=== PATIENT | male | born 1990 | race Caucasian/White ===

== ENCOUNTER 2016-10-01 11:20 | Emergency (ER) | payer OTHER, SELFPAY ==
[2016-10-01] MEDS ORDERED: GASTROGRAFIN SOLUTION 30ML (Q9963) As Ordered ONE (13:02)
[2016-10-01] MEDS ORDERED: ONDANSETRON 4MG/2ML VIAL (J2405) As Ordered ONE (13:02)
[2016-10-01 13:10] LABS: BASO # 0.1 K/mm3 (0.0-0.2); BASO % 0.7 % (0.0-1.0); EOS # 0.2 K/mm3 (0.0-0.50); EOS % 1.8 % (0.0-3.0); LARGE UNSTAINED CELL # 0.1 K/mm3 (0.0-0.4); LYMPH # 2.2 K/mm3 (1.5-6.5); LYMPH % 23.3 % (24.0-44.0); MEAN CORPUSCULAR HEMOGLOBIN 29.8 pg (27.0-33.0); MEAN CORPUSCULAR HGB CONC 32.8 g/dl (32.0-36.5); MONO # 0.7 K/mm3 (0.0-0.8); MONO % 7.5 % (0.0-5.0); NEUTROPHILS # 5.8 K/mm3 (1.8-7.7); NEUTROPHILS % 65.7 % (36.0-66.0); PLATELET COUNT, AUTOMATED 205 k/mm3 (150-450); RED CELL DISTRIBUTION WIDTH 12.4 % (11.5-14.5); WHITE BLOOD COUNT 8.8 K/mm3 (4.0-10.0)
[2016-10-01 13:30] LABS: ALBUMIN/GLOBULIN RATIO 1.08 (1.00-1.93); ALKALINE PHOSPHATASE 82 U/L (45-117); ALT/SGPT 21 U/L (12-78); ANION GAP 7 MEQ/L (8-16); AST/SGOT 12 U/L (15-37); BILIRUBIN,DIRECT < 0.1 MG/DL (0.0-0.2); BILIRUBIN,TOTAL 0.4 MG/DL (0.2-1.0); BLOOD UREA NITROGEN 13 MG/DL (7-18); CALCIUM LEVEL 9.3 MG/DL (8.5-10.1); CARBON DIOXIDE LEVEL 30 MEQ/L (21-32); CHLORIDE LEVEL 107 MEQ/L (98-107); CREATININE FOR GFR 0.81 MG/DL (0.70-1.30); GLOMERULAR FILTRATION RATE > 60.0 (>60); GLUCOSE, FASTING 91 MG/DL (70-105); POTASSIUM SERUM 4.2 MEQ/L (3.5-5.1); SODIUM LEVEL 144 MEQ/L (136-145); TOTAL PROTEIN 7.7 GM/DL (6.4-8.2)
[2016-10-01] MEDS ORDERED: ISOVUE-370 76% 100ML VIAL (Q9967) As Ordered ONE (14:32)
--- NOTE | 2016-10-01 15:27 | REP ---
CT study of the abdomen and pelvis with IV and oral contrast: History: Abdominal pain. Comparison study January 28, 2016. CT contrast dose: 100 ml of Isovue [address] findings: Preliminary digital leather cleaner radiograph demonstrates an unremarkable bowel gas pattern. The lung bases are clear. The liver and the spleen are normal in size and homogeneous in texture. There are two peripheral 1 cm low density areas in the superior spleen, which are unchanged from the prior study of January 28, 2016. The gallbladder and pancreas are unremarkable. 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 The right renal vein and the inferior vena cava drain into some paralumbar and parathoracic collateral vessels, which appear to course into the azygos vein above the diaphragm. Left renal vein feeds into the intrahepatic segment of the IVC. This variant venous anatomy is unchanged. No retroperitoneal mass or adenopathy is seen. Kidneys enhance symmetrically and are morphologically intact. Small and large intestinal bowel loops are normal in the upper abdomen. Pelvic CT images demonstrate a normal appendix adjacent to the cecal tip. No small or large bowel dilation is seen. Urinary bladder, seminal vesicles and prostate are unremarkable. No bony destructive lesion is seen. No abdominal wall defect is seen. Impression: 1. No acute intra-abdominal abnormality. 2. 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 This is unchanged. Normal appendix is seen. No evidence of hydronephrosis or intrarenal calculus. Signed by Chuck Lyman MD 10/01/2016 04:50 P
--- NOTE | 2016-10-01 16:04 | EDDOCDS ---
Physician Documentation [facility] Name: Ariel Ruby Age: 26 yrs Sex: Male : 1990 Arrival Date: 10/01/2016 Time: 11:20 Bed I9 / 22 Private MD: NO PRIMARY PHYSICIAN, . Disposition: 10/01/16 15:45 Discharged to Home/Self Care. Impression: Nausea and vomiting. - Condition is Stable. - Discharge Instructions: Nausea and Vomiting. - Prescriptions for ZOFRAN ODT 4 mg - dissolve 1 tablet by ORAL route 4 times per day As needed do not chew, do not swallow whole; 10 tablet. - Medication Reconciliation, Local Pharmacy Hours, Work Release Form - 1 day form. - [facility] up: [facility]; When: 2 - 3 days; Reason: Recheck today's complaints. - Problem is new. - Symptoms have improved. - Notes: You were seen in the ED for nausea and vomiting. Bloodwork along with CT scan of the abdomen and pelvis showed no acute findings. 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 You may take Zofran as needed for nausea. Encourage clear liquids, then advance your diet as tolerated. Call your doctor to arrange to be seen for follow-up. If you have no doctor please call the [facility] to arrange to be seen. Return to the ED for any worsening abdominal pain, fever, inability to tolerate oral foods or liquids or any other concerns. Historical: - Allergies: Codeine Sulfate (Rash); - Home Meds: 1. clindamycin HCl 300 mg Oral cap 1 cap every 6 hours (Last dose: 10/01/2016 07:00) 2. Motrin 800 mg Oral tab 1 tab 3 times per day (Last dose: 10/01/2016 07:00) 3. prednisone 10 mg Oral tab once daily (Last dose: 10/01/2016 07:00) - PMHx: Colitis; Kidney stones; Pneumothorax, Spontaneous; - PSHx: Tonsillectomy; - Social history: Smoking status: Patient uses tobacco products, heavy tobacco smoker. No barriers to communication noted, Speaks appropriately for age. - Family history: Not pertinent. - : The pt / caregiver states he / she is not on anticoagulants. Home medication list is obtained from the patient. - Exposure Risk Screening:: None identified. Vital Signs: 10/01 11:22 BP 132 / 88; Pulse 98; Resp 18; Temp 98.5(O); Pulse Ox 100% on R/A; Weight 56.7 kg / dem1 125 lbs; Height 5 ft. 10 in. (177.80 cm); Pain 6/10; 16:02 BP 120 / 78; Pulse 82; Resp 18; Temp 96.4(O); Pulse Ox 100% on R/A; Pain 2/10; jjr 11:22 Body Mass Index 17.94 (56.70 kg, 177.80 cm) dem1 MDM: 12:36 IV Saline Lock ordered. br1 12:36 NS 0.9% 1000 ml IV at 150 mL/hr continuous ordered. br1 12:37 Ondansetron 4 mg IVP once ordered. br1 12:37 CBC with Diff Ordered. EDMS 12:37 BMP Ordered. EDMS 12:37 Liver Profile Ordered. EDMS 12:37 Lipase Ordered. EDMS 12:38 CT ABD & PELVIS: IV and Oral Contrast Ordered. EDMS 12:57 Diatrizoate Meglumine & Sodium Liquid 10 ml PO once; mix in 290cc of water,administer jjr at 1300 ordered. 12:57 Diatrizoate Meglumine & Sodium Liquid 10 ml PO once; mix in 290cc of water, administer jjr at 1330 ordered. 13:02 Financial registration complete. az 13:08 GASTROINTESTINAL (GI) PANEL Ordered. EDMS 13:26 [facility] Payment Agreement was scanned into [employer] and attached to record. az 14:12 CBC with Diff Reviewed. br1 14:12 BMP Reviewed. br1 14:12 Liver Profile Reviewed. br1 14:12 Lipase Reviewed. br1 15:10 Fluid Challenge ordered. br1 Administered Medications: 13:10 Drug: Diatrizoate Meglumine & Sodium 10 ml [diatrizoate meglumine and diat.sodium 66 jjr %-10 % oral solution (10 mL)] Route: PO; 13:15 Drug: NS 0.9% 1000 ml [sodium chloride 0.9 % intravenous solution] Route: IV; Rate: 150 jjr mL/hr; Site: left antecubital; 16:02 Follow up: IV Status: Infusion discontinued; IV Intake: 300ml jjr 13:16 Drug: Ondansetron 4 mg [ondansetron HCl 2 mg/mL intravenous solution (2 mL)] Route: jjr IVP; Site: left antecubital; 13:38 Drug: Diatrizoate Meglumine & Sodium 10 ml [diatrizoate meglumine and diat.sodium 66 jjr %-10 % oral solution (10 mL)] Route: PO; Signatures: Dispatcher [employer] EDMS Wilner Abernathy,RN RN Sal Melendez MD MD br1 Griselda Dominguez RN RN Mike Vila RN RN ml6 Marti Tracey The chart was reviewed and I authenticate all verbal orders and agree with the evaluation and treatment provided.Corrections: (The following items were deleted from the chart) 13:08 13:06 GASTROINTESTINAL (GI) PANEL+HEAVENLY ordered. EDMS EDMS Attachments: 13:26 [facility] Payment Agreement az MTDD
--- NOTE | 2016-10-01 16:04 | EDDOCDS ---
Nurse's Notes [facility] Name: Ariel Ruby Age: 26 yrs Sex: Male : 1990 Arrival Date: 10/01/2016 Time: 11:20 Bed I9 / Private MD: NO PRIMARY PHYSICIAN, . Diagnosis: Nausea and vomiting Presentation: 10/01 11:27 Presenting complaint: Patient states: states he has been having Heartburn every night ml6 when he lays down to sleep x 1 week. Adult Sepsis Screening: The patient does not have new or worsening altered mentation. Patient's respiratory rate is less than 22. Systolic blood pressure is greater than 100. Patient has a qSOFA score of 0- Negative Sepsis Screen. Suicide/Homicide risk assessment- the patient denies having any suicidal and/or homicidal ideations and does not present with any other emotional, behavioral or mental health complaints. Status: Patient is not a financial services consultant or dependent. Transition of care: patient was not received from another setting of care. 11:27 Acuity: COLT Level 4 ml6 11:27 Method Of Arrival: Walkin/Carried/Asstd ml6 Triage Assessment: 11:30 General: Appears in no apparent distress, Behavior is appropriate for age, cooperative. ml6 Pain: Denies pain. HIV screening NA for this visit Offered previously. GI: Abdomen is flat, non- distended Bowel sounds present X 4 quads. Abd is soft and non tender X 4 quads. Reports epigastric pain, indigestion. Historical: - Allergies: Codeine Sulfate (Rash); - Home Meds: 1. clindamycin HCl 300 mg Oral cap 1 cap every 6 hours (Last dose: 10/01/2016 07:00) 2. Motrin 800 mg Oral tab 1 tab 3 times per day (Last dose: 10/01/2016 07:00) 3. prednisone 10 mg Oral tab once daily (Last dose: 10/01/2016 07:00) - PMHx: Colitis; Kidney stones; Pneumothorax, Spontaneous; - PSHx: Tonsillectomy; - Social history: Smoking status: Patient uses tobacco products, heavy tobacco smoker. No barriers to communication noted, Speaks appropriately for age. - Family history: Not pertinent. - : The pt / caregiver states he / she is not on anticoagulants. Home medication list is obtained from the patient. - Exposure Risk Screening:: None identified. Screenin:16 Screening information is obtained from the patient. Fall risk: No risks identified. jmk Assistance ADL's: requires no assistance with activities of daily living. Abuse/DV Screen: The patient / caregiver reports he/she is: not in a situation that causes fear, pain or injury. Nutritional screening: No deficits noted. Advance Directives: Currently, there is no health care proxy. There is no active DNR order. There is no living will. There is no Power of Biazzi Nitrator Operator. Advance directive information has not previously been placed in an [facility] medical record. 16:03 home support is adequate. jjr Assessment: 12:16 General: Appears in no apparent distress, very tolerant of physical activity . jmk ambulates with brisk gait.. indicates abd pain x week since starting antibiotic and steroids. .Moist pink oral mucosa. Abd soft and non distended with bowel sounds present x 4. GI: Abdomen is flat, non- distended Bowel sounds present X 4 quads. Abd is soft X 4 quads Abd is tender to palpation diffusely tender. 13:16 General: Appears in no apparent distress, slender, denies nausea at this time, jjr instructions for oral contrast pt verbalizes understanding. Pain: Aggravated by eating. 14:31 General: Appears resting with eyes closed resp easy and regular. rouses to verbal jmk stimuli. reports little change to pain level " maybe a little less". oral contrast taken and retained, awaiting ct avail. 15:14 General: Appears in no apparent distress, sipping on gingerale, tolerating without jjr difficulty at this time, pt denies needs at this time. Vital Signs: 11:22 BP 132 / 88; Pulse 98; Resp 18; Temp 98.5(O); Pulse Ox 100% on R/A; Weight 56.7 kg; dem1 Height 5 ft. 10 in. (177.80 cm); Pain 6/10; 16:02 BP 120 / 78; Pulse 82; Resp 18; Temp 96.4(O); Pulse Ox 100% on R/A; Pain 2/10; jjr 11:22 Body Mass Index 17.94 (56.70 kg, 177.80 cm) [facility] Vitals: 11:22 Log In Time: October 01, 2016 at 11:20. dem1 ED Course: 11:21 Patient visited by He Gastelum. dem1 11:21 NO PRIMARY PHYSICIAN, . is Private Physician. dem1 11:21 Patient moved to Waiting dem1 11:23 Patient moved to Pre RCE dem1 11:28 Triage Initiated ml6 12:10 Griselda Dominguez, RN is Primary Nurse. ml6 12:10 Patient moved to I8 / 16 ml6 12:16 Patient moved to I9 / 22 jmk 12:16 The patient / caregiver is instructed regarding the plan of care and ED course. jmk 12:21 Patient visited by Wilner Abernathy,LAURYN. jmk 12:22 Sal Ring MD is Attending Physician. br1 12:36 Patient visited by Sal Ring MD. br1 12:56 Lipase Sent. jjr 12:56 Liver Profile Sent. jjr 12:56 BMP Sent. jjr 12:56 CBC with Diff Sent. jjr 13:16 Inserted saline lock: 20 gauge in left antecubital area and blood collected. Labs jjr drawn. (by ED staff). Sent per order to lab. 13:17 Patient visited by Griselda Dominguez RN. jjr 13:26 [facility] [place] [place] Payment Agreement was scanned into [employer] and attached to record. az 14:15 Patient visited by Naya Hemphill PCA. jlf 14:32 Patient visited by Wilner Abernathy,LAURYN. jmk 15:10 Patient visited by Sal Ring MD. br1 15:15 Patient visited by Griselda Dominguez RN. jjr 15:43 Patient visited by Sal Ring MD. br1 15:45 [facility] is Referral Physician. br1 16:03 Discontinued lock intact, bleeding controlled, pressure dressing applied, No jjr redness/swelling at site. No procedures done that require assistance. Administered Medications: 13:10 Drug: Diatrizoate Meglumine & Sodium 10 ml [diatrizoate meglumine and diat.sodium 66 jjr %-10 % oral solution (10 mL)] Route: PO; 13:15 Drug: NS 0.9% 1000 ml [sodium chloride 0.9 % intravenous solution] Route: IV; Rate: 150 jjr mL/hr; Site: left antecubital; 16:02 Follow up: IV Status: Infusion discontinued; IV Intake: 300ml jjr 13:16 Drug: Ondansetron 4 mg [ondansetron HCl 2 mg/mL intravenous solution (2 mL)] Route: jjr IVP; Site: left antecubital; 13:38 Drug: Diatrizoate Meglumine & Sodium 10 ml [diatrizoate meglumine and diat.sodium 66 jjr %-10 % oral solution (10 mL)] Route: PO; Intake: 16:02 IV: 300.00ml; Total: 300.00ml. jjr Order Results: Lab Order: CBC with Diff; SPEC'M 10/01/16 12:53 Test: WHITE BLOOD COUNT; Value: 8.8; Range: 4.0-10.0; Units: K/mm3; Status: F Test: RED BLOOD COUNT; Value: 5.06; Range: 4.30-6.10; Units: M/mm3; Status: F Test: HEMOGLOBIN; Value: 15.1; Range: 14.0-18.0; Units: g/dl; Status: F Test: HEMATOCRIT; Value: 46.1; Range: 42.0-52.0; Units: %; Status: F Test: MEAN CORPUSCULAR VOLUME; Value: 91.0; Range: 80.0-96.0; Units: fl; Status: F Test: MEAN CORPUSCULAR HEMOGLOBIN; Value: 29.8; Range: 27.0-33.0; Units: pg; Status: F Test: MEAN CORPUSCULAR HGB CONC; Value: 32.8; Range: 32.0-36.5; Units: g/dl; Status: F Test: RED CELL DISTRIBUTION WIDTH; Value: 12.4; Range: 11.5-14.5; Units: %; Status: F Test: PLATELET COUNT, AUTOMATED; Value: 205; Range: 150-450; Units: k/mm3; Status: F Test: NEUTROPHILS %; Value: 65.7; Range: 36.0-66.0; Units: %; Status: F Test: LYMPH %; Value: 23.3; Range: 24.0-44.0; Abnormal: Below low normal; Units: %; Status: F Test: MONO %; Value: 7.5; Range: 0.0-5.0; Abnormal: Above high normal; Units: %; Status: F Test: EOS %; Value: 1.8; Range: 0.0-3.0; Units: %; Status: F Test: BASO %; Value: 0.7; Range: 0.0-1.0; Units: %; Status: F Test: LARGE UNSTAINED CELL %; Value: 1.0; Range: 0.0-4.0; Units: %; Status: F Test: NEUTROPHILS #; Value: 5.8; Range: 1.8-7.7; Units: K/mm3; Status: F Test: LYMPH #; Value: 2.2; Range: 1.5-6.5; Units: K/mm3; Status: F Test: MONO #; Value: 0.7; Range: 0.0-0.8; Units: K/mm3; Status: F Test: EOS #; Value: 0.2; Range: 0.0-0.50; Units: K/mm3; Status: F Test: BASO #; Value: 0.1; Range: 0.0-0.2; Units: K/mm3; Status: F Test: LARGE UNSTAINED CELL #; Value: 0.1; Range: 0.0-0.4; Units: K/mm3; Status: F Lab Order: [facility]; SPEC'M 10/01/16 12:53 Test: GLUCOSE, FASTING; Value: 91; Range: 70-105; Units: MG/DL; Status: F Test: BLOOD UREA NITROGEN; Value: 13; Range: 7-18; Units: MG/DL; Status: F Test: CREATININE FOR GFR; Value: 0.81; Range: 0.70-1.30; Units: MG/DL; Status: F Test: GLOMERULAR FILTRATION RATE; Value: > 60.0; Range: >60; Status: F Test: SODIUM LEVEL; Value: 144; Range: 136-145; Units: MEQ/L; Status: F Test: POTASSIUM SERUM; Value: 4.2; Range: 3.5-5.1; Units: MEQ/L; Status: F Test: CHLORIDE LEVEL; Value: 107; Range: 98-107; Units: MEQ/L; Status: F Test: CARBON DIOXIDE LEVEL; Value: 30; Range: 21-32; Units: MEQ/L; Status: F Test: ANION GAP; Value: 7; Range: 8-16; Abnormal: Below low normal; Units: MEQ/L; Status: F Test: CALCIUM LEVEL; Value: 9.3; Range: 8.5-10.1; Units: MG/DL; Status: F Test Note: ; Units are mL/min/1.73 m2 Chronic Kidney Disease Staging per NKF: Stage I & II GFR >=60 Normal to Mildly Decreased Stage III GFR 30-59 Moderately Decreased Stage IV GFR 15-29 Severely Decreased Stage V GFR <15 Very Little GFR Left ESRD GFR <15 on GROMMET WORKER Lab Order: Liver Profile; SPEC'10/01/16 12:53 Test: AST/SGOT; Value: 12; Range: 15-37; Abnormal: Below low normal; Units: U/L; Status: F Test: ALT/SGPT; Value: 21; Range: 12-78; Units: U/L; Status: F Test: ALKALINE PHOSPHATASE; Value: 82; Range: 45-117; Units: U/L; Status: F Test: BILIRUBIN,TOTAL; Value: 0.4; Range: 0.2-1.0; Units: MG/DL; Status: F Test: BILIRUBIN,DIRECT; Value: < 0.1; Range: 0.0-0.2; Units: MG/DL; Status: F Test: TOTAL PROTEIN; Value: 7.7; Range: 6.4-8.2; Units: GM/DL; Status: F Test: ALBUMIN; Value: 4.0; Range: 3.2-5.2; Units: GM/DL; Status: F Test: ALBUMIN/GLOBULIN RATIO; Value: 1.08; Range: 1.00-1.93; Status: F Lab Order: Lipase; SPEC'10/01/16 12:53 Test: LIPASE; Value: 75; Range: 73-393; Units: U/L; Status: F Outcome: 15:45 Discharge ordered by Provider. br1 16:03 Discharge Assessment: patient administered narcotics - no. The following High Risk jjr Discharge criteria are identified: None. Discharged to home ambulatory. Condition: stable. Discharge instructions given to patient, Instructed on discharge instructions, follow up and referral plans. medication usage, Demonstrated understanding of instructions, medications, Prescriptions given X 1, Work note provided to patient. CT Study completed. Property sent home with patient. 16:04 Patient left the ED. oliver Signatures: Wilner Abernathy,RN RN Sal Melendez MD MD br1 Griselda Dominguez RN RN Mike Vila RN RN ml6 He Gastelum1 Naya Hemphill PCA [employer] naila Marti Tracey MTDD
--- NOTE | 2016-10-03 17:04 | EDDOCDS ---
Nurse's Notes [facility] Name: Ariel Ruby Age: 26 yrs Sex: Male : 1990 Arrival Date: 10/01/2016 Time: 11:20 Bed I9 / Private MD: NO PRIMARY PHYSICIAN, . Diagnosis: Nausea and vomiting Presentation: 10/01 11:27 Presenting complaint: Patient states: states he has been having Heartburn every night ml6 when he lays down to sleep x 1 week. Adult Sepsis Screening: The patient does not have new or worsening altered mentation. Patient's respiratory rate is less than 22. Systolic blood pressure is greater than 100. Patient has a qSOFA score of 0- Negative Sepsis Screen. Suicide/Homicide risk assessment- the patient denies having any suicidal and/or homicidal ideations and does not present with any other emotional, behavioral or mental health complaints. Status: Patient is not a student services coordinator or dependent. Transition of care: patient was not received from another setting of care. 11:27 Acuity: COLT Level 4 ml6 11:27 Method Of Arrival: Walkin/Carried/Asstd ml6 Triage Assessment: 11:30 General: Appears in no apparent distress, Behavior is appropriate for age, cooperative. ml6 Pain: Denies pain. HIV screening NA for this visit Offered previously. GI: Abdomen is flat, non- distended Bowel sounds present X 4 quads. Abd is soft and non tender X 4 quads. Reports epigastric pain, indigestion. Historical: - Allergies: Codeine Sulfate (Rash); - Home Meds: 1. clindamycin HCl 300 mg Oral cap 1 cap every 6 hours (Last dose: 10/01/2016 07:00) 2. Motrin 800 mg Oral tab 1 tab 3 times per day (Last dose: 10/01/2016 07:00) 3. prednisone 10 mg Oral tab once daily (Last dose: 10/01/2016 07:00) - PMHx: Colitis; Kidney stones; Pneumothorax, Spontaneous; - PSHx: Tonsillectomy; - Social history: Smoking status: Patient uses tobacco products, heavy tobacco smoker. No barriers to communication noted, Speaks appropriately for age. - Family history: Not pertinent. - : The pt / caregiver states he / she is not on anticoagulants. Home medication list is obtained from the patient. - Exposure Risk Screening:: None identified. Screenin:16 Screening information is obtained from the patient. Fall risk: No risks identified. jmk Assistance ADL's: requires no assistance with activities of daily living. Abuse/DV Screen: The patient / caregiver reports he/she is: not in a situation that causes fear, pain or injury. Nutritional screening: No deficits noted. Advance Directives: Currently, there is no health care proxy. There is no active DNR order. There is no living will. There is no Power of Ballast Cleaning Operator. Advance directive information has not previously been placed in an [facility] medical record. 16:03 home support is adequate. jjr Assessment: 12:16 General: Appears in no apparent distress, very tolerant of physical activity . jmk ambulates with brisk gait.. indicates abd pain x week since starting antibiotic and steroids. .Moist pink oral mucosa. Abd soft and non distended with bowel sounds present x 4. GI: Abdomen is flat, non- distended Bowel sounds present X 4 quads. Abd is soft X 4 quads Abd is tender to palpation diffusely tender. 13:16 General: Appears in no apparent distress, slender, denies nausea at this time, jjr instructions for oral contrast pt verbalizes understanding. Pain: Aggravated by eating. 14:31 General: Appears resting with eyes closed resp easy and regular. rouses to verbal jmk stimuli. reports little change to pain level " maybe a little less". oral contrast taken and retained, awaiting ct avail. 15:14 General: Appears in no apparent distress, sipping on gingerale, tolerating without jjr difficulty at this time, pt denies needs at this time. Vital Signs: 11:22 BP 132 / 88; Pulse 98; Resp 18; Temp 98.5(O); Pulse Ox 100% on R/A; Weight 56.7 kg; dem1 Height 5 ft. 10 in. (177.80 cm); Pain 6/10; 16:02 BP 120 / 78; Pulse 82; Resp 18; Temp 96.4(O); Pulse Ox 100% on R/A; Pain 2/10; jjr 11:22 Body Mass Index 17.94 (56.70 kg, 177.80 cm) [facility] Vitals: 11:22 Log In Time: October 01, 2016 at 11:20. dem1 ED Course: 11:21 Patient visited by He Gastelum. dem1 11:21 NO PRIMARY PHYSICIAN, . is Private Physician. dem1 11:21 Patient moved to Waiting dem1 11:23 Patient moved to Pre RCE dem1 11:28 Triage Initiated ml6 12:10 Griselda Dominguez, RN is Primary Nurse. ml6 12:10 Patient moved to I8 / 16 ml6 12:16 Patient moved to I9 / 22 jmk 12:16 The patient / caregiver is instructed regarding the plan of care and ED course. jmk 12:21 Patient visited by Wilner Abernathy,LAURYN. jmk 12:22 Sal Ring MD is Attending Physician. br1 12:36 Patient visited by Sal Ring MD. br1 12:56 Lipase Sent. jjr 12:56 Liver Profile Sent. jjr 12:56 BMP Sent. jjr 12:56 CBC with Diff Sent. jjr 13:16 Inserted saline lock: 20 gauge in left antecubital area and blood collected. Labs jjr drawn. (by ED staff). Sent per order to lab. 13:17 Patient visited by Griselda Dominguez RN. jjr 13:26 [facility] [place] Payment Agreement was scanned into [employer] and attached to record. az 14:15 Patient visited by Naya Hemphill PCA. jlf 14:32 Patient visited by Wilner Abernathy,LAURYN. jmk 15:10 Patient visited by Sal Ring MD. br1 15:15 Patient visited by Griselda Dominguez RN. jjr 15:43 Patient visited by Sal Ring MD. br1 15:45 [facility] is Referral Physician. br1 16:03 Discontinued lock intact, bleeding controlled, pressure dressing applied, No jjr redness/swelling at site. No procedures done that require assistance. 16:09 CT ABD & PELVIS: IV and Oral Contrast Returned. EDMS 10/02 11:58 T-Sheet-- Draft Copy was scanned into [employer] and attached to record. gb 11:59 Radiology Report was scanned into [employer] and attached to record. gb Administered Medications: 10/01 13:10 Drug: Diatrizoate Meglumine & Sodium 10 ml [diatrizoate meglumine and diat.sodium 66 jjr %-10 % oral solution (10 mL)] Route: PO; 13:15 Drug: NS 0.9% 1000 ml [sodium chloride 0.9 % intravenous solution] Route: IV; Rate: 150 jjr mL/hr; Site: left antecubital; 16:02 Follow up: IV Status: Infusion discontinued; IV Intake: 300ml jjr 13:16 Drug: Ondansetron 4 mg [ondansetron HCl 2 mg/mL intravenous solution (2 mL)] Route: jjr IVP; Site: left antecubital; 13:38 Drug: Diatrizoate Meglumine & Sodium 10 ml [diatrizoate meglumine and diat.sodium 66 jjr %-10 % oral solution (10 mL)] Route: PO; Intake: 16:02 IV: 300.00ml; Total: 300.00ml. jjr Order Results: Lab Order: CBC with Diff; SPEC'M 10/01/16 12:53 Test: WHITE BLOOD COUNT; Value: 8.8; Range: 4.0-10.0; Units: K/mm3; Status: F Test: RED BLOOD COUNT; Value: 5.06; Range: 4.30-6.10; Units: M/mm3; Status: F Test: HEMOGLOBIN; Value: 15.1; Range: 14.0-18.0; Units: g/dl; Status: F Test: HEMATOCRIT; Value: 46.1; Range: 42.0-52.0; Units: %; Status: F Test: MEAN CORPUSCULAR VOLUME; Value: 91.0; Range: 80.0-96.0; Units: fl; Status: F Test: MEAN CORPUSCULAR HEMOGLOBIN; Value: 29.8; Range: 27.0-33.0; Units: pg; Status: F Test: MEAN CORPUSCULAR HGB CONC; Value: 32.8; Range: 32.0-36.5; Units: g/dl; Status: F Test: RED CELL DISTRIBUTION WIDTH; Value: 12.4; Range: 11.5-14.5; Units: %; Status: F Test: PLATELET COUNT, AUTOMATED; Value: 205; Range: 150-450; Units: k/mm3; Status: F Test: NEUTROPHILS %; Value: 65.7; Range: 36.0-66.0; Units: %; Status: F Test: LYMPH %; Value: 23.3; Range: 24.0-44.0; Abnormal: Below low normal; Units: %; Status: F Test: MONO %; Value: 7.5; Range: 0.0-5.0; Abnormal: Above high normal; Units: %; Status: F Test: EOS %; Value: 1.8; Range: 0.0-3.0; Units: %; Status: F Test: BASO %; Value: 0.7; Range: 0.0-1.0; Units: %; Status: F Test: LARGE UNSTAINED CELL %; Value: 1.0; Range: 0.0-4.0; Units: %; Status: F Test: NEUTROPHILS #; Value: 5.8; Range: 1.8-7.7; Units: K/mm3; Status: F Test: LYMPH #; Value: 2.2; Range: 1.5-6.5; Units: K/mm3; Status: F Test: MONO #; Value: 0.7; Range: 0.0-0.8; Units: K/mm3; Status: F Test: EOS #; Value: 0.2; Range: 0.0-0.50; Units: K/mm3; Status: F Test: BASO #; Value: 0.1; Range: 0.0-0.2; Units: K/mm3; Status: F Test: LARGE UNSTAINED CELL #; Value: 0.1; Range: 0.0-0.4; Units: K/mm3; Status: F Lab Order: [facility]; SPEC'M 10/01/16 12:53 Test: GLUCOSE, FASTING; Value: 91; Range: 70-105; Units: MG/DL; Status: F Test: BLOOD UREA NITROGEN; Value: 13; Range: 7-18; Units: MG/DL; Status: F Test: CREATININE FOR GFR; Value: 0.81; Range: 0.70-1.30; Units: MG/DL; Status: F Test: GLOMERULAR FILTRATION RATE; Value: > 60.0; Range: >60; Status: F Test: SODIUM LEVEL; Value: 144; Range: 136-145; Units: MEQ/L; Status: F Test: POTASSIUM SERUM; Value: 4.2; Range: 3.5-5.1; Units: MEQ/L; Status: F Test: CHLORIDE LEVEL; Value: 107; Range: 98-107; Units: MEQ/L; Status: F Test: CARBON DIOXIDE LEVEL; Value: 30; Range: 21-32; Units: MEQ/L; Status: F Test: ANION GAP; Value: 7; Range: 8-16; Abnormal: Below low normal; Units: MEQ/L; Status: F Test: CALCIUM LEVEL; Value: 9.3; Range: 8.5-10.1; Units: MG/DL; Status: F Test Note: ; Units are mL/min/1.73 m2 Chronic Kidney Disease Staging per NKF: Stage I & II GFR >=60 Normal to Mildly Decreased Stage III GFR 30-59 Moderately Decreased Stage IV GFR 15-29 Severely Decreased Stage V GFR <15 Very Little GFR Left ESRD GFR <15 on SYNTHETIC SOIL BLOCKS PULPER Lab Order: Liver Profile; SPEC'M 10/01/16 12:53 Test: AST/SGOT; Value: 12; Range: 15-37; Abnormal: Below low normal; Units: U/L; Status: F Test: ALT/SGPT; Value: 21; Range: 12-78; Units: U/L; Status: F Test: ALKALINE PHOSPHATASE; Value: 82; Range: 45-117; Units: U/L; Status: F Test: BILIRUBIN,TOTAL; Value: 0.4; Range: 0.2-1.0; Units: MG/DL; Status: F Test: BILIRUBIN,DIRECT; Value: < 0.1; Range: 0.0-0.2; Units: MG/DL; Status: F Test: TOTAL PROTEIN; Value: 7.7; Range: 6.4-8.2; Units: GM/DL; Status: F Test: ALBUMIN; Value: 4.0; Range: 3.2-5.2; Units: GM/DL; Status: F Test: ALBUMIN/GLOBULIN RATIO; Value: 1.08; Range: 1.00-1.93; Status: F Lab Order: Lipase; SPEC'M 10/01/16 12:53 Test: LIPASE; Value: 75; Range: 73-393; Units: U/L; Status: F Radiology Order: CT ABD & PELVIS: IV and Oral Contrast Test: CT ABD & PELVIS: IV and Oral Contrast REASON FOR EXAMINATION: Abdomen Pain; CT study of the abdomen and pelvis with IV and oral contrast:; ; History: Abdominal pain.; ; Comparison study January 28, 2016.; ; CT contrast dose: 100 ml of Isovue 370 is administered intravenously.; ; CT findings: Preliminary digital machine tool technology instructor radiograph demonstrates an unremarkable; bowel gas pattern. The lung bases are clear.; ; The liver and the spleen are normal in size and homogeneous in texture. There; are two peripheral 1 cm low density areas in the superior spleen, which are; unchanged from the prior study of January 28, 2016. The gallbladder and pancreas are; unremarkable. 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 The; right renal vein and the inferior vena cava drain into some paralumbar and; parathoracic collateral vessels, which appear to course into the azygos vein; above the diaphragm. Left renal vein feeds into the intrahepatic segment of the; IVC. This variant venous anatomy is unchanged. No retroperitoneal mass or; adenopathy is seen. Kidneys enhance symmetrically and are morphologically; intact. Small and large intestinal bowel loops are normal in the upper abdomen.; ; Pelvic CT images demonstrate a normal appendix adjacent to the cecal tip. No; small or large bowel dilation is seen. Urinary bladder, seminal vesicles and; prostate are unremarkable. No bony destructive lesion is seen. No abdominal; wall defect is seen.; ; Impression:; ; 1. No acute intra-abdominal abnormality.; ; 2. 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 Normal appendix is seen. No evidence of hydronephrosis or; intrarenal calculus.; ; ; Signed by; Chuck Lyman MD 10/01/2016 04:50 P; Outcome: 15:45 Discharge ordered by Provider. br1 16:03 Discharge Assessment: patient administered narcotics - no. The following High Risk jjr Discharge criteria are identified: None. Discharged to home ambulatory. Condition: stable. Discharge instructions given to patient, Instructed on discharge instructions, follow up and referral plans. medication usage, Demonstrated understanding of instructions, medications, Prescriptions given X 1, Work note provided to patient. CT Study completed. Property sent home with patient. 16:04 Patient left the ED. jjr Signatures: Dispatcher [employer] EDWilner Palomares,RN RN Alvina Arellano, Sal Kearns MD MD br1 Griselda Dominguez RN RN jMike Carr RN RN ml6 He Gastelum1 Naya Hemphill PCA [facility] Marti Tracey Chart Complete MTDD
--- NOTE | 2016-10-03 17:04 | EDDOCDS ---
Physician Documentation [facility] Name: Ariel Ruby Age: 26 yrs Sex: Male : 1990 Arrival Date: 10/01/2016 Time: 11:20 Bed I9 / 22 Private MD: NO PRIMARY PHYSICIAN, . Disposition: 10/01/16 15:45 Discharged to Home/Self Care. Impression: Nausea and vomiting. - Condition is Stable. - Discharge Instructions: Nausea and Vomiting. - Prescriptions for ZOFRAN ODT 4 mg - dissolve 1 tablet by ORAL route 4 times per day As needed do not chew, do not swallow whole; 10 tablet. - Medication Reconciliation, Local Pharmacy Hours, Work Release Form - 1 day form. - [facility] up[facility]; When: 2 - 3 days; Reason: Recheck today's complaints. - Problem is new. - Symptoms have improved. - Notes: You were seen in the ED for nausea and vomiting. Bloodwork along with CT scan of the abdomen and pelvis showed no acute findings. 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 You may take Zofran as needed for nausea. Encourage clear liquids, then advance your diet as tolerated. Call your doctor to arrange to be seen for follow-up. If you have no doctor please call the [facility] to arrange to be seen. Return to the ED for any worsening abdominal pain, fever, inability to tolerate oral foods or liquids or any other concerns. Historical: - Allergies: Codeine Sulfate (Rash); - Home Meds: 1. clindamycin HCl 300 mg Oral cap 1 cap every 6 hours (Last dose: 10/01/2016 07:00) 2. Motrin 800 mg Oral tab 1 tab 3 times per day (Last dose: 10/01/2016 07:00) 3. prednisone 10 mg Oral tab once daily (Last dose: 10/01/2016 07:00) - PMHx: Colitis; Kidney stones; Pneumothorax, Spontaneous; - PSHx: Tonsillectomy; - Social history: Smoking status: Patient uses tobacco products, heavy tobacco smoker. No barriers to communication noted, Speaks appropriately for age. - Family history: Not pertinent. - : The pt / caregiver states he / she is not on anticoagulants. Home medication list is obtained from the patient. - Exposure Risk Screening:: None identified. Vital Signs: 10/01 11:22 BP 132 / 88; Pulse 98; Resp 18; Temp 98.5(O); Pulse Ox 100% on R/A; Weight 56.7 kg / dem1 125 lbs; Height 5 ft. 10 in. (177.80 cm); Pain 6/10; 16:02 BP 120 / 78; Pulse 82; Resp 18; Temp 96.4(O); Pulse Ox 100% on R/A; Pain 2/10; jjr 11:22 Body Mass Index 17.94 (56.70 kg, 177.80 cm) dem1 MDM: 12:36 IV Saline Lock ordered. br1 12:36 NS 0.9% 1000 ml IV at 150 mL/hr continuous ordered. br1 12:37 Ondansetron 4 mg IVP once ordered. br1 12:37 CBC with Diff Ordered. EDMS 12:37 BMP Ordered. EDMS 12:37 Liver Profile Ordered. EDMS 12:37 Lipase Ordered. EDMS 12:38 CT ABD & PELVIS: IV and Oral Contrast Ordered. EDMS 12:57 Diatrizoate Meglumine & Sodium Liquid 10 ml PO once; mix in 290cc of water,administer jjr at 1300 ordered. 12:57 Diatrizoate Meglumine & Sodium Liquid 10 ml PO once; mix in 290cc of water, administer jjr at 1330 ordered. 13:02 Financial registration complete. az 13:08 GASTROINTESTINAL (GI) PANEL Ordered. EDMS 13:26 [facility] Payment Agreement was scanned into [employer] and attached to record. az 14:12 CBC with Diff Reviewed. br1 14:12 BMP Reviewed. br1 14:12 Liver Profile Reviewed. br1 14:12 Lipase Reviewed. br1 15:10 Fluid Challenge ordered. br1 10/02 11:58 T-Sheet-- Draft Copy was scanned into [employer] and attached to record. gb 11:59 Radiology Report was scanned into [employer] and attached to record. gb 17:36 ED course: [facility] formal report of ct abd/p for fu mlg. ml Administered Medications: 10/01 13:10 Drug: Diatrizoate Meglumine & Sodium 10 ml [diatrizoate meglumine and diat.sodium 66 jjr %-10 % oral solution (10 mL)] Route: PO; 13:15 Drug: NS 0.9% 1000 ml [sodium chloride 0.9 % intravenous solution] Route: IV; Rate: 150 jjr mL/hr; Site: left antecubital; 16:02 Follow up: IV Status: Infusion discontinued; IV Intake: 300ml jjr 13:16 Drug: Ondansetron 4 mg [ondansetron HCl 2 mg/mL intravenous solution (2 mL)] Route: jjr IVP; Site: left antecubital; 13:38 Drug: Diatrizoate Meglumine & Sodium 10 ml [diatrizoate meglumine and diat.sodium 66 jjr %-10 % oral solution (10 mL)] Route: PO; Signatures: Dispatcher [employer] EDMS Carlos Hernandez MD MD ml Knapp, Jean,RN RN Alvina Arellano, Gregory Reg Sal Galicia MD MD br1 Griselda Dominguez RN RN Mike Vila RN RN ml6 Marti Tracey ca The chart was reviewed and I authenticate all verbal orders and agree with the evaluation and treatment provided.Corrections: (The following items were deleted from the chart) 13 13:06 GASTROINTESTINAL (GI) PANEL+HEAVENLY ordered. EDKS EDMS Attachments: 13:26 [facility] Payment Agreement az 10/02 11:58 T-Sheet-- Draft Copy gb Chart Complete MTDD
--- NOTE | 2016-10-03 17:04 | EDDOCDS ---
Physician Documentation [facility] Name: Ariel Ruby Age: 26 yrs Sex: Male : 1990 Arrival Date: 10/01/2016 Time: 11:20 Bed I9 / 22 Private MD: NO PRIMARY PHYSICIAN, . Disposition: 10/01/16 15:45 Discharged to Home/Self Care. Impression: Nausea and vomiting. - Condition is Stable. - Discharge Instructions: Nausea and Vomiting. - Prescriptions for ZOFRAN ODT 4 mg - dissolve 1 tablet by ORAL route 4 times per day As needed do not chew, do not swallow whole; 10 tablet. - Medication Reconciliation, Local Pharmacy Hours, Work Release Form - 1 day form. - [facility]: [facility]; When: 2 - 3 days; Reason: Recheck today's complaints. - Problem is new. - Symptoms have improved. - Notes: You were seen in the ED for nausea and vomiting. Bloodwork along with CT scan of the abdomen and pelvis showed no acute findings. 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 You may take Zofran as needed for nausea. Encourage clear liquids, then advance your diet as tolerated. Call your doctor to arrange to be seen for follow-up. If you have no doctor please call the [facility] to arrange to be seen. Return to the ED for any worsening abdominal pain, fever, inability to tolerate oral foods or liquids or any other concerns. Historical: - Allergies: Codeine Sulfate (Rash); - Home Meds: 1. clindamycin HCl 300 mg Oral cap 1 cap every 6 hours (Last dose: 10/01/2016 07:00) 2. Motrin 800 mg Oral tab 1 tab 3 times per day (Last dose: 10/01/2016 07:00) 3. prednisone 10 mg Oral tab once daily (Last dose: 10/01/2016 07:00) - PMHx: Colitis; Kidney stones; Pneumothorax, Spontaneous; - PSHx: Tonsillectomy; - Social history: Smoking status: Patient uses tobacco products, heavy tobacco smoker. No barriers to communication noted, Speaks appropriately for age. - Family history: Not pertinent. - : The pt / caregiver states he / she is not on anticoagulants. Home medication list is obtained from the patient. - Exposure Risk Screening:: None identified. Vital Signs: 10/01 11:22 BP 132 / 88; Pulse 98; Resp 18; Temp 98.5(O); Pulse Ox 100% on R/A; Weight 56.7 kg / dem1 125 lbs; Height 5 ft. 10 in. (177.80 cm); Pain 6/10; 16:02 BP 120 / 78; Pulse 82; Resp 18; Temp 96.4(O); Pulse Ox 100% on R/A; Pain 2/10; jjr 11:22 Body Mass Index 17.94 (56.70 kg, 177.80 cm) dem1 MDM: 12:36 IV Saline Lock ordered. br1 12:36 NS 0.9% 1000 ml IV at 150 mL/hr continuous ordered. br1 12:37 Ondansetron 4 mg IVP once ordered. br1 12:37 CBC with Diff Ordered. EDMS 12:37 BMP Ordered. EDMS 12:37 Liver Profile Ordered. EDMS 12:37 Lipase Ordered. EDMS 12:38 CT ABD & PELVIS: IV and Oral Contrast Ordered. EDMS 12:57 Diatrizoate Meglumine & Sodium Liquid 10 ml PO once; mix in 290cc of water,administer jjr at 1300 ordered. 12:57 Diatrizoate Meglumine & Sodium Liquid 10 ml PO once; mix in 290cc of water, administer jjr at 1330 ordered. 13:02 Financial registration complete. az 13:08 GASTROINTESTINAL (GI) PANEL Ordered. EDMS 13:26 [facility] Payment Agreement was scanned into [employer] and attached to record. az 14:12 CBC with Diff Reviewed. br1 14:12 BMP Reviewed. br1 14:12 Liver Profile Reviewed. br1 14:12 Lipase Reviewed. br1 15:10 Fluid Challenge ordered. br1 10/02 11:58 T-Sheet-- Draft Copy was scanned into [employer] and attached to record. gb 11:59 Radiology Report was scanned into [employer] and attached to record. gb 17:36 ED course: [facility] formal report of ct abd/p for fu mlg. ml Administered Medications: 10/01 13:10 Drug: Diatrizoate Meglumine & Sodium 10 ml [diatrizoate meglumine and diat.sodium 66 jjr %-10 % oral solution (10 mL)] Route: PO; 13:15 Drug: NS 0.9% 1000 ml [sodium chloride 0.9 % intravenous solution] Route: IV; Rate: 150 jjr mL/hr; Site: left antecubital; 16:02 Follow up: IV Status: Infusion discontinued; IV Intake: 300ml jjr 13:16 Drug: Ondansetron 4 mg [ondansetron HCl 2 mg/mL intravenous solution (2 mL)] Route: jjr IVP; Site: left antecubital; 13:38 Drug: Diatrizoate Meglumine & Sodium 10 ml [diatrizoate meglumine and diat.sodium 66 jjr %-10 % oral solution (10 mL)] Route: PO; Signatures: Dispatcher [employer] EDMS Carlos Hernandez MD MD ml Knapp, Jean,RN RN Alvina Arellano, Gregory Reg Sal Galicia MD MD br1 Griselda Dominguez RN RN Mike Vila RN RN ml6 Marti Tracey ca The chart was reviewed and I authenticate all verbal orders and agree with the evaluation and treatment provided.Corrections: (The following items were deleted from the chart) 13 13:06 GASTROINTESTINAL (GI) PANEL+HEAVENLY ordered. EDTN EDMS Attachments: 13:26 [facility] Payment Agreement az 10/02 11:58 T-Sheet-- Draft Copy gb Chart Complete MTDD
== END 2016-10-01 16:04 | disposition home or self-care (01) ==
LOC: M ED 11:20
DX: R11.2 Nausea with vomiting, unspecified (principal); K52.9 Noninfective gastroenteritis and colitis, unspecified; N20.0 Calculus of kidney; Z72.0 Tobacco use; Z88.5 Allergy status to narcotic agent
CPT/HCPCS: 36415; 74177; 80048; 80076; 83690; 85025; 96361; 96374; 99284; J2405; Q9963; Q9967

== ENCOUNTER 2018-12-10 13:52 | Inpatient (IN) | payer OTHER ==
[2018-12-10] VITALS (14 sets, daily range): BP systolic 115–145; BP diastolic 71–92
[~2018-12-10] VITALS: Ht 175.3 cm; Wt 59.0 kg
[2018-12-10] MEDS: PANTOPRAZOLE 40MG INJ (PROTONIX) (C9113) IV SCH (09:00)
[2018-12-10 14:47] LABS: BASO # 0.1 10^3/uL (0.0-0.2); BASO % 0.4 % (0.0-1.0); EOS # 0.1 10^3/uL (0.0-0.50); EOS % 0.8 % (0.0-3.0); HEMATOCRIT 43.1 % (42.0-52.0); HEMOGLOBIN 14.4 g/dl (13.5-17.5); LYMPH # 2.1 10^3/uL (1.5-6.5); LYMPH % 13.6 % (24.0-44.0); MEAN CORPUSCULAR HEMOGLOBIN 30.2 pg (27.0-33.0); MEAN CORPUSCULAR HGB CONC 33.4 g/dl (32.0-36.5); MEAN CORPUSCULAR VOLUME 90.4 fl (80.0-96.0); MONO # 0.9 10^3/uL (0.0-0.8); MONO % 5.7 % (0.0-5.0); NEUTROPHILS # 12.3 10^3/uL (1.8-7.7); NEUTROPHILS % 79.2 % (36.0-66.0); PLATELET COUNT, AUTOMATED 243 10^3/uL (150-450); RED BLOOD COUNT 4.77 10^6/uL (4.30-6.10); WHITE BLOOD COUNT 15.6 10^3/uL (4.0-10.0)
--- NOTE | 2018-12-10 14:56 | REP ---
Portable chest, two upright AP views: Comparison is 04/27/2015. There is a right pneumothorax. The area over the apex of the right lung is 4 cm. Left lung is clear. Cardiac size is normal. The abdifatah, mediastinum, skeletal structures are unremarkable. Impression: Right apical pneumothorax. Electronically Signed by Jeremy Lucas MD 12/10/2018 02:48 P
[2018-12-10 14:59] LABS: D-DIMER QUANT 450.71 ng/ml (<500)
[2018-12-10] MEDS ORDERED: PERCOCET 5MG/325MG TAB PO PRN (15:15)
[2018-12-10] MEDS ORDERED: BISACODYL 10 MG SUPP PR PRN (15:15)
[2018-12-10] MEDS ORDERED: LEVALBUTEROL 1.25 MG/0.5 ML CONCENTRATE NEB NEB PRN (15:15)
[2018-12-10] MEDS ORDERED: NORCO, ANEXSIA 5/325MG TABLET (HYDROcodone/ACETAMINOPHEN) PO PRN (15:15)
[2018-12-10] MEDS ORDERED: ACETAMINOPHEN TAB 650MG DOSE (2X325MG) PO PRN (15:15)
[2018-12-10] MEDS ORDERED: ONDANSETRON 4MG/2ML VIAL (J2405) IV PRN (15:15)
[2018-12-10 15:21] LABS: BLOOD UREA NITROGEN 14 MG/DL (7-18); CALCIUM LEVEL 8.5 MG/DL (8.5-10.1); CARBON DIOXIDE LEVEL 29 MEQ/L (21-32); CHLORIDE LEVEL 106 MEQ/L (98-107); CK-MB VALUE MASS < 1.0 NG/ML (<3.6); CPK CREATINE PHOSPHOKINASE 72 U/L (39-308); CREATININE FOR GFR 1.14 MG/DL (0.70-1.30); GLOMERULAR FILTRATION RATE > 60.0 (>60); GLUCOSE, FASTING 94 MG/DL (70-100); MB/CK RELATIVE INDEX 1.39 (< OR =4); POTASSIUM SERUM 3.9 MEQ/L (3.5-5.1); SODIUM LEVEL 141 MEQ/L (136-145); TROPONIN I < 0.02 NG/ML (< 0.10)
[2018-12-10 15:24] LABS: INFLUENZA A AMPLIFICATION NEGATIVE (NEGATIVE); INFLUENZA B AMPLIFICATION NEGATIVE (NEGATIVE)
[2018-12-10 15:27] LABS: FREE T4 1.17 NG/DL (0.76-1.46); THYROID STIMULATING HORMONE 0.094 uIU/ML (0.358-3.740)
[2018-12-10 15:32] LABS: INR 0.92; PROTHROMBIN TIME 12.5 SECONDS (12.1-14.4)
[2018-12-10] MEDS ORDERED: MIDAZOLAM INJ 2 MG/2 ML VIAL (J2250) As Ordered ONE (15:47)
[2018-12-10] MEDS ORDERED: LIDOCAINE 1% MDV 20ML VIAL As Ordered ONE (15:48)
[2018-12-10] MEDS ORDERED: FLUMAZENIL 0.5 MG/5 ML VIAL As Ordered ONE (15:49)
[2018-12-10] MEDS ORDERED: MIDAZOLAM INJ 2 MG/2 ML VIAL (J2250) IV ONE ×2 (16:31→16:33)
[2018-12-10] MEDS ORDERED: LIDOCAINE 1% MDV 20ML VIAL SC ONE (16:31)
[2018-12-10] MEDS ORDERED: KETOROLAC 30 MG/ML VIAL (J1885) IV ONE (16:44)
[2018-12-10 17:07] LABS: ABG BASE EXCESS -1.5 (-2.0-2.0); ABG HCO3 22.8 MEQ/L (22.0-26.0); ABG O2 SATURATION 98.3 % (95.0-99.0); ABG PARTIAL PRESSURE O2 109.1 mmHg (75.0-100.0); ABG STANDARD HCO3 23.3 MEQ/L (22.0-26.0); ABG TOTAL CO2 23.9 MEQ/L (22.0-29.0); ABG pH (ARTERIAL) 7.407 UNITS (7.350-7.450)
--- NOTE | 2018-12-10 17:27 | REP ---
Chest one-view HISTORY: Chest tube placement Comparison: 12/10/2018 The lungs are clear. The heart is normal in size. The pulmonary vasculature is normal in appearance. A chest tube is present in the right hemithorax. There is no pneumothorax. Impression: The patient is status post right chest tube placement. There is no pneumothorax. Electronically Signed by Fidel Richmond MD 12/10/2018 05:18 P
[2018-12-10] MEDS: PERCOCET 5MG/325MG TAB PO PRN ×2 (17:43→21:59)
[2018-12-10] MEDS: KCL 20MEQ IN D5/NS 1000ML 1,000 ML IV SCH (17:44)
--- NOTE | 2018-12-10 17:47 | HPE ---
DATE OF ADMISSION: 12/10/2018 Patient seen at the request of Dr. Onofre in the emergency room for a spontaenous pneumothorax on the right. HISTORY OF PRESENT ILLNESS: About a week ago, the patient started experiencing sudden onset of right-sided chest pain. Over the last few days it has gotten a lot worse and he has become more progressively short of breath. Finally today, he sought medical attention when the pain became excruciating. Prior to last week he had no cough or sputum production. Throughout the week he has had some cough. He has pleuritic chest pain with pain taking a deep breath. It is a sharp knife-like pain. He states he is also becoming more short of breath over the last week. There has been no dysphagia. No fever, chills or sweats. No night sweats. He is not experiencing any weight loss. Most significantly, he has had a prior pneumothorax on that side in 2010. He also states that he had a pneumothorax on the left side, but it was occasioned by trauma. He actually told me that he has had an additional pneumothorax on the right making a total of three on this side including today's. PAST MEDICAL HISTORY: Ulcerative colitis. Not on any medications and has not seen a physician. Unclear on what basis the diagnosis is placed. PAST SURGICAL HISTORY: None. MEDICATIONS AT HOME: None. ALLERGIES: CODEINE. TRAVEL HISTORY: He has traveled to [place], but not to the [facility]. EXPOSURES: He has one dog at home. A white-haired dachshund. No cats or birds. No exposure to tuberculosis. HABITS: He smokes about a pack a day of full branded cigarettes of [employer]. Does not drink and there are no illicit drugs. OCCUPATIONAL HISTORY: Works at [employer]. 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 FAMILY HISTORY: Not contributory to the acute situation. REVIEW OF SYSTEMS: Constitutional: Without fever, chills, sweats or night sweats. Without weight loss. Eyes: Without diplopia, without amaurosis fugax. Without prior jaundice. Nose: Without epistaxis. Mouth: Has his own teeth. Respiratory: See HPI. Cardiac: During the past week he has had tachycardias and palpitations. No pressure type chest pains. No intermittent claudication or peripheral edema. Gastrointestinal (GI): Has diarrhea, but it is not bloody. No melena. No hematochezia. Occasional nausea. No vomiting. No abdominal pain at this time. Genitourinary (): Without dysuria, hematuria or history of renal stones. Endocrine: Without diabetes. Without thyroid disease. Neurologic: Without paresthesias, paralysis or seizures. Psychiatric: Has anxiety appropriately placed regarding his situation today. Without pathologic depression, psychoses or other anxieties. PHYSICAL EXAMINATION: General: Well-developed, well-nourished thin tall lanky white male in mild distress from shortness of breath and chest pain. Vital signs: Temperature is 98.7, heart rate is 91 in sinus rhythm. Respiratory rate is 18 without the use of accessory muscles who is 100% saturated on room air and whose blood pressure is 125/81. Head: Normocephalic. Eyes: Pupils equal, round and reactive to light. Extraocular muscles intact. Sclera anicteric. Nose: Without deformity. Mouth: Has his own teeth with a number missing. Lips and commissures are without lesions. There is no thrush. Neck is supple. There is no jugular venous distention, no subcutaneous emphysema. Trachea is midline. There is no lymphadenopathy, no thyromegaly. He has 2+ carotid upstrokes without bruits. Lungs: Show decreased breath sounds on the right side. Left side shows normal vesicular sounds without wheezes, rhonchi or rales. Percussion notes are full to the diaphragm. Cardiac examination: Without murmurs, clicks, gallops or rubs. I cannot feel his point of maximal impulse (PMI), S1 and S2 are normal. Abdomen: Soft and nontender. Bowel sounds are positive. There is no hepatomegaly. There is no costovertebral angle (CVA) tenderness. Extremities: Show no pretibial edema, no calf tenderness. No differential swelling of the upper extremities. Skin: Warm and dry, and perfused without cyanosis or mottling including that of the nail beds and the knees. Neuro: Shows II through XII intact. Gross motor and gross sensation intact. Gait is not tested. Psychiatric: Shows him to be awake, alert and oriented times three, with appropriate mood, affect, and appropriate anxiety. LABS: White count is 15.6 with a hemoglobin and hematocrit of 14.4 and 43.1 and a platelet count of 243. Differential shows 79% neutrophils, 13% lymphocytes, 5% monocytes. There are no immature forms or toxic granulations. CHEMISTRIES: Show normal electrolytes with BUN and creatinine of 14 and 1.14 with calcium 8.5 and a glucose of 94. TSH is 0.94. PT/INR are 12.5 and 0.92. Chest x-ray shows a 25 to 30% pneumothorax on the right side. There is no mediastinal shift and there is no subcutaneous emphysema. Costophrenic angles are sharp. IMPRESSION: 1. Recurrent spontaneous pneumothorax on the right. 2. 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 3. Tobacco abuse. 4. History of ulcerative colitis per the patient. PLAN AND DISCUSSION: I will immediately place a chest tube. Because this is a recurrent patient times at least three, I will take him to the operating room tomorrow where we will undertake a talc pleurodesis. I will obtain a chest CT today to locate his congenital blebs and wedge them tomorrow.
--- NOTE | 2018-12-10 18:28 | RO ---
DATE OF PROCEDURE: 12/10/2017 PREPROCEDURE DIAGNOSIS: Spontaneous pneumothorax recurrent on the right. POSTPROCEDURE DIAGNOSIS: Spontaneous pneumothorax recurrent on the right. PROCEDURE: Insertion of an anterior chest tube with moderate sedation. SURGEON: Dr. Jerrell Prince. ANESTHESIA: Under satisfactory monitored sedation 4 mg of Versed. Patient was prepped and draped in the usual sterile fashion. The skin and subcutaneous tissue with 1% lidocaine over the 2nd rib. Incision was made and a tunnel was created into the 1st intercostal interspace without difficulty. A #20 chest tube was placed. Chest tube was secured to the chest wall with a 2-0 suture. Patient tolerated the procedure well and chest x-ray is pending.
--- NOTE | 2018-12-10 19:05 | REP ---
CT of the chest without IV contrast: There is a right thoracotomy tube entering anteriorly with the tip in the apex of the right hemithorax. There is no pneumothorax. There are small areas of pleuroparenchymal scarring in the lung apices bilaterally. No bulla are identified in the right lung. There are small focal areas of pleuroparenchymal scarring at the periphery of the right upper lobe. in the superior segment of the right lower lobe and posterior segment of the right lower lobe. There are two subpleural bulla in the left upper lobe posteriorly, one measuring 9 mm and the other measuring 8 mm in diameter on image 26. No other left lung bulla are identified. There are no infiltrates. There are no pleural effusions. There is a 5 mm lung nodule in the inferiorly in the anterior segment of the right upper lobe on image 59. No other nodules or masses are identified. There is no mediastinal or axillary lymph node enlargement. The study is insensitive for hilar lymph node enlargement in the absence of IV contrast. The unenhanced thoracic aorta is unremarkable. Cardiac size is normal. The visualized unenhanced upper abdominal contents are unremarkable except for a 3 mm left renal nonobstructive calculus. Impression: There are no bulla in the right lung. There are small focal zones of pleural parenchymal scarring. There are two small bulla posteriorly in the a left upper lobe on image 26. Electronically Signed by Jeremy Lucas MD 12/10/2018 06:57 P
[2018-12-10] MEDS: LEVALBUTEROL 1.25 MG/0.5 ML CONCENTRATE NEB NEB SCH (20:57)
[2018-12-10] MEDS: DOCUSATE SODIUM 100 MG CAP PO SCH (21:24)
[2018-12-10] MEDS: HEPARIN SOD (PORCINE) 5000 UNITS/ML VIAL SC SCH (21:24)
[2018-12-10] MEDS: KETOROLAC 30 MG/ML VIAL (J1885) IV SCH (22:00)
[2018-12-10] MEDS ORDERED: NICOTINE 21MG/24HR 1 EA TRANSDERMAL TD ONE (22:30)
[2018-12-11] VITALS: BP 117/74
[2018-12-11] MEDS: LEVALBUTEROL 1.25 MG/0.5 ML CONCENTRATE NEB NEB SCH ×4 (02:25→20:26)
[2018-12-11 04:00] VITALS: BP 119/68
[2018-12-11] MEDS: KCL 20MEQ IN D5/NS 1000ML 1,000 ML IV SCH (05:09)
[2018-12-11] MEDS: PERCOCET 5MG/325MG TAB PO PRN ×2 (05:10→20:36)
[2018-12-11] MEDS: KETOROLAC 30 MG/ML VIAL (J1885) IV SCH ×4 (05:10→21:52)
[2018-12-11] MEDS ORDERED: MUPIROCIN 2% OINT 22 GM TUBE TOP ONE (06:00)
[2018-12-11 06:06] LABS: BASO # 0.1 10^3/uL (0.0-0.2); BASO % 0.6 % (0.0-1.0); EOS # 0.2 10^3/uL (0.0-0.50); EOS % 1.6 % (0.0-3.0); HEMATOCRIT 41.3 % (42.0-52.0); HEMOGLOBIN 13.4 g/dl (13.5-17.5); LYMPH # 3.3 10^3/uL (1.5-6.5); LYMPH % 34.7 % (24.0-44.0); MEAN CORPUSCULAR HEMOGLOBIN 29.5 pg (27.0-33.0); MEAN CORPUSCULAR HGB CONC 32.4 g/dl (32.0-36.5); MONO # 0.9 10^3/uL (0.0-0.8); MONO % 9.6 % (0.0-5.0); NEUTROPHILS % 53.2 % (36.0-66.0); PLATELET COUNT, AUTOMATED 226 10^3/uL (150-450); RED BLOOD COUNT 4.54 10^6/uL (4.30-6.10); WHITE BLOOD COUNT 9.4 10^3/uL (4.0-10.0)
[2018-12-11 06:29] LABS: BLOOD UREA NITROGEN 13 MG/DL (7-18); CARBON DIOXIDE LEVEL 26 MEQ/L (21-32); CHLORIDE LEVEL 110 MEQ/L (98-107); CREATININE FOR GFR 0.91 MG/DL (0.70-1.30); GLOMERULAR FILTRATION RATE > 60.0 (>60); GLUCOSE, FASTING 115 MG/DL (70-100); POTASSIUM SERUM 3.4 MEQ/L (3.5-5.1); SODIUM LEVEL 142 MEQ/L (136-145)
[2018-12-11 08:00] VITALS: BP 118/75
[2018-12-11] MEDS: PANTOPRAZOLE 40MG TAB (PROTONIX) PO SCH (09:00)
--- NOTE | 2018-12-11 09:01 | REP ---
PA and lateral chest: Comparisons are 12/10/2018. The right thoracotomy tube is unchanged. There is no pneumothorax. There is a small volume of fluid in the right costophrenic angle as an interval change. Left lung is clear. Cardiac size is normal. The abdifatah, mediastinum, and skeletal structures are unremarkable. Impression: Small right pleural effusion as an interval change. No pneumothorax. Right thoracotomy tube is unchanged. Electronically Signed by Jeremy Lucas MD 12/11/2018 08:52 A
[2018-12-11] MEDS: DOCUSATE SODIUM 100 MG CAP PO SCH ×2 (09:13→20:35)
[2018-12-11] MEDS: MOM 30ML SUSPENSION UDC PO SCH (09:13)
[2018-12-11] MEDS: HEPARIN SOD (PORCINE) 5000 UNITS/ML VIAL SC SCH ×2 (09:14→20:35)
[2018-12-11] MEDS: PANTOPRAZOLE 40MG INJ (PROTONIX) (C9113) IV SCH (09:16)
[2018-12-11] MEDS: NICOTINE 21MG/24HR 1 EA TRANSDERMAL TD SCH (09:17)
[2018-12-11 12:00] VITALS: BP 138/86
--- NOTE | 2018-12-11 14:30 | IPN ---
DATE: 12/11/2018 My intent was to take the patient to the operating room today to undertake a talc pleurodesis and wedge resection of upper lobe bleb, however, the operating room cannot get to him until between 6:00 and 8:00 tonight. Because this is not a life or emergency, I would rather have the thoracic team available. The next date that I can get him to the operating room was Saturday. I have given the patient a choice between going to [facility] for an earlier operation or waiting until Saturday and he has chosen to wait until Saturday. His pain is being well controlled with Toradol. His vital signs show a maximum temperature (t-max) of 98.3 with a heart rate that ranges between 61 and 88 in a sinus rhythm, respiratory rate of 16 to 18 without the use of accessory muscles, who is 99% saturated on room air and whose blood pressure is ranging between 118/75 to 138/86. His intake and output over the past 24 hours has been recorded as 1020 in and 200 out for a positivity of 820 mL. He has been nothing by mouth and I have now fed him a regular diet after cancelling the operating room. He has no air leak and nothing has come out of the chest tube. PHYSICAL EXAMINATION LUNGS: His lungs show equal breath sounds on either side, normal vesicular sounds. I hear no wheezes, rhonchi or rales. Percussion note is full to the diaphragm. There is no subcutaneous emphysema over the chest wall. CARDIAC EXAM: Without murmurs, clicks, gallops or rubs. I cannot feel his point of maximum impulse (PMI). S1, S2 are normal. ABDOMEN: Soft, nontender. Bowel sounds positive. There is no hepatomegaly. No costovertebral angle tenderness. EXTREMITIES: Show no pretibial edema. No calf tenderness. No differential swelling of the upper extremities. SKIN: Warm, dry and perfused without cyanosis or mottling, including that of the nail beds and knees. NECK: Supple. There is no jugular venous distention. No subcutaneous emphysema. Trachea is midline. MOUTH: Shows his mucous membranes to be pink and moist. Lips and commissures without lesions. There is no thrush. EYES: Show his pupils to be equal and reactive. Extraocular motion intact. Sclerae anicteric. NEUROLOGIC: Shows II through XII intact with gross motor and gross sensation intact. Gait is not tested. PSYCHIATRIC: Shows him to be awake and alert, oriented times three with appropriate mood and affect and conversational. His chest x-ray today shows the chest tube in excellent position. There is a little bit of blunting of the right costophrenic angle. There is also a small air space at the cupula of the right lung. Chest CT yesterday showed a very clear bleb at the apex of the lung, best seen on the coronal views. There were no lung masses. His parenchyma do show emphysematous changes secondary to smoking. Adrenals have a normal configuration and there are no liver lesions. His white count today is 9.4 with a hemoglobin and hematocrit of 13.4 and 41.3, and platelet count of 226. Differential shows 53% neutrophils, 34% lymphocytes, 9% monocytes. There are no immature forms and no toxic granulations. His white count has markedly come down from yesterday's of 15.6 and his platelet count is stable. Electrolytes show a potassium of 3.4, with the remainder of his electrolytes normal. BUN and creatinine are 13 and 0.91 and glucose of 115 and a calcium of 8.0. IMPRESSION: 1. Recurrent spontaneous pneumothoraces times three. 2. Tobacco abuse. 3. Distal emphysematous bleb disease. 4. History of ulcerative colitis. PLAN/DISCUSSION: We will have to wait patiently for Saturday when I can get him to the operating room. I again offered him the choice of transferring him to [facility] and he has elected to stay here.
[2018-12-11 16:00] VITALS: BP 135/82
[2018-12-11 20:00] VITALS: BP 131/80
--- NOTE | 2018-12-11 21:33 | ECGEPIP ---
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
[2018-12-12] VITALS (7 sets, daily range): BP systolic 126–148; BP diastolic 68–86
[2018-12-12] MEDS: LEVALBUTEROL 1.25 MG/0.5 ML CONCENTRATE NEB NEB SCH ×4 (00:58→19:45)
[2018-12-12] MEDS: KETOROLAC 30 MG/ML VIAL (J1885) IV SCH ×4 (04:11→21:07)
[2018-12-12] MEDS: PERCOCET 5MG/325MG TAB PO PRN ×5 (04:36→21:07)
[2018-12-12 05:50] LABS: BASO # 0.1 10^3/uL (0.0-0.2); BASO % 0.8 % (0.0-1.0); EOS # 0.2 10^3/uL (0.0-0.50); EOS % 2.3 % (0.0-3.0); HEMATOCRIT 37.8 % (42.0-52.0); HEMOGLOBIN 12.3 g/dl (13.5-17.5); LYMPH # 2.6 10^3/uL (1.5-6.5); LYMPH % 30.1 % (24.0-44.0); MEAN CORPUSCULAR HEMOGLOBIN 29.9 pg (27.0-33.0); MEAN CORPUSCULAR HGB CONC 32.5 g/dl (32.0-36.5); MONO # 0.7 10^3/uL (0.0-0.8); MONO % 7.5 % (0.0-5.0); NEUTROPHILS # 5.2 10^3/uL (1.8-7.7); NEUTROPHILS % 59.1 % (36.0-66.0); PLATELET COUNT, AUTOMATED 210 10^3/uL (150-450); RED BLOOD COUNT 4.11 10^6/uL (4.30-6.10); WHITE BLOOD COUNT 8.8 10^3/uL (4.0-10.0)
[2018-12-12 06:17] LABS: BLOOD UREA NITROGEN 12 MG/DL (7-18); CALCIUM LEVEL 8.4 MG/DL (8.5-10.1); CARBON DIOXIDE LEVEL 27 MEQ/L (21-32); CHLORIDE LEVEL 111 MEQ/L (98-107); CREATININE FOR GFR 0.87 MG/DL (0.70-1.30); GLOMERULAR FILTRATION RATE > 60.0 (>60); GLUCOSE, FASTING 115 MG/DL (70-100); POTASSIUM SERUM 3.8 MEQ/L (3.5-5.1); SODIUM LEVEL 142 MEQ/L (136-145)
[2018-12-12] MEDS: PANTOPRAZOLE 40MG INJ (PROTONIX) (C9113) IV SCH (08:13)
--- NOTE | 2018-12-12 08:19 | REP ---
Chest x-ray: Two views. History: Pneumothorax. Comparison study December 11, 2018. Findings: A right apical chest tube is again noted in place. There is a tiny sliver of apical pleural air on the right. This is essentially unchanged from yesterday's radiograph. There is slight blunting of the right lateral pleural angle also unchanged. Lung guzman are otherwise clear. Heart is not enlarged. Electronically Signed by Chuck Lyman MD 12/12/2018 08:10 A
[2018-12-12] MEDS: MOM 30ML SUSPENSION UDC PO SCH (08:26)
[2018-12-12] MEDS: NICOTINE 21MG/24HR 1 EA TRANSDERMAL TD SCH (08:26)
[2018-12-12] MEDS: HEPARIN SOD (PORCINE) 5000 UNITS/ML VIAL SC SCH ×2 (08:27→21:07)
[2018-12-12] MEDS: DOCUSATE SODIUM 100 MG CAP PO SCH ×2 (08:27→21:07)
[2018-12-12] MEDS: PANTOPRAZOLE 40MG TAB (PROTONIX) PO SCH (08:27)
--- NOTE | 2018-12-12 12:26 | IPN ---
DATE: 12/12/2018 Mr. Ruby has had a stable 24 hours and his pain is being well controlled. He is not short of breath and he has no air leak. His vital signs show a maximum temperature (t-max) of 98.6 with a heart rate that ranges between 75 and 77 in a sinus rhythm, respiratory rate of 16 to 18 without the use of accessory muscles, who is 99% saturated on room air and whose blood pressure is ranging 123/78 to 130/77. Intake and output for the past 24 hours has been recorded as 1890 in and 1080 out for a positivity of 810 mL. He has put 5 mL out of the chest tube and there is no air leak. PHYSICAL EXAMINATION: LUNGS: His lungs are equal on either side with normal vesicular sounds. Percussion note is full to the diaphragm. CARDIAC EXAM: Without murmurs, clicks, gallops or rubs. I cannot feel his point of maximum impulse (PMI). S1, S2 are normal. ABDOMEN: Soft, nontender. Bowel sounds positive. There is no hepatomegaly. No costovertebral angle tenderness. EXTREMITIES: Show no pretibial edema. No calf tenderness. No differential swelling of the upper extremities. SKIN: Warm, dry and perfused without cyanosis or mottling, including that of the nail beds and knees. NECK: Supple. There is no jugular venous distention. No subcutaneous emphysema. Trachea is midline. MOUTH: Shows his mucous membranes to be pink and moist. Lips and commissures without lesions. There is no thrush. EYES: Show his pupils to be equal and reactive. Extraocular motion intact. Sclerae anicteric. NEUROLOGIC: Shows II through XII intact with gross motor and gross sensation intact. Gait is not tested. PSYCHIATRIC: Shows him to be awake and alert, oriented times three with appropriate mood and affect and conversational. His white count today is 8.8 with a hemoglobin and hematocrit of 12.3 and 37.8. Platelet count is 210. Differential shows 59% neutrophils, 30% lymphocytes, 7% monocytes. There are no immature forms. No toxic granulations. Electrolytes are normal with a BUN and creatinine of 12 and 0.87, glucose of 115 and calcium of 8.4. He remains on Toradol. His chest x-ray shows his lung fully expanded to the chest wall. There is no subcutaneous emphysema and the heart is in the midline. IMPRESSION: 1. Recurrent spontaneous pneumothorax, right side. 2. Tobacco abuse. 3. Distal emphysematous bleb disease. 4. History of ulcerative colitis. PLAN/DISCUSSION: Plan is to take him to the operating room on Saturday for talc pleurodesis and wedge resection.
[2018-12-13] MEDS: LEVALBUTEROL 1.25 MG/0.5 ML CONCENTRATE NEB NEB SCH ×4 (01:45→18:06)
[2018-12-13 04:00] VITALS: BP 124/73
[2018-12-13] MEDS: PERCOCET 5MG/325MG TAB PO PRN ×4 (04:04→21:05)
[2018-12-13] MEDS: KETOROLAC 30 MG/ML VIAL (J1885) IV SCH ×4 (04:04→21:06)
[2018-12-13 06:07] LABS: BASO # 0.1 10^3/uL (0.0-0.2); BASO % 0.4 % (0.0-1.0); EOS # 0.2 10^3/uL (0.0-0.50); HEMATOCRIT 35.8 % (42.0-52.0); HEMOGLOBIN 11.7 g/dl (13.5-17.5); LYMPH # 4.5 10^3/uL (1.5-6.5); LYMPH % 28.2 % (24.0-44.0); MEAN CORPUSCULAR HEMOGLOBIN 29.7 pg (27.0-33.0); MEAN CORPUSCULAR HGB CONC 32.7 g/dl (32.0-36.5); MEAN CORPUSCULAR VOLUME 90.9 fl (80.0-96.0); MONO # 1.4 10^3/uL (0.0-0.8); MONO % 8.9 % (0.0-5.0); NEUTROPHILS # 9.8 10^3/uL (1.8-7.7); NEUTROPHILS % 61.2 % (36.0-66.0); PLATELET COUNT, AUTOMATED 224 10^3/uL (150-450); RED BLOOD COUNT 3.94 10^6/uL (4.30-6.10); WHITE BLOOD COUNT 15.9 10^3/uL (4.0-10.0)
[2018-12-13 06:28] LABS: BLOOD UREA NITROGEN 13 MG/DL (7-18); CALCIUM LEVEL 8.5 MG/DL (8.5-10.1); CARBON DIOXIDE LEVEL 30 MEQ/L (21-32); CHLORIDE LEVEL 106 MEQ/L (98-107); CREATININE FOR GFR 0.83 MG/DL (0.70-1.30); GLOMERULAR FILTRATION RATE > 60.0 (>60); GLUCOSE, FASTING 101 MG/DL (70-100); POTASSIUM SERUM 3.9 MEQ/L (3.5-5.1); SODIUM LEVEL 141 MEQ/L (136-145)
[2018-12-13 08:00] VITALS: BP 127/72
[2018-12-13] MEDS: PANTOPRAZOLE 40MG TAB (PROTONIX) PO SCH (08:33)
[2018-12-13] MEDS: MOM 30ML SUSPENSION UDC PO SCH (08:33)
[2018-12-13] MEDS: DOCUSATE SODIUM 100 MG CAP PO SCH ×2 (08:33→21:04)
[2018-12-13] MEDS: NICOTINE 21MG/24HR 1 EA TRANSDERMAL TD SCH (08:34)
[2018-12-13] MEDS: HEPARIN SOD (PORCINE) 5000 UNITS/ML VIAL SC SCH ×2 (08:34→21:05)
[2018-12-13 12:00] VITALS: BP 119/66
--- NOTE | 2018-12-13 12:51 | IPN ---
DATE: 12/13/2018 Mr. Mullinss pain is being well controlled today. He is breathing well. There is no air leak today. His vital signs show a T-max of 99.4 with a heart rate that ranges between 98 and 91 and is sinus rhythm, respiratory rate of 18 to 16 without the use of accessory muscles, who is 100% saturated on room air and whose blood pressure is ranging 124/73 to 127/72. Intake and output the past 24 hours has been recorded as 1685 in and 2850 out for a negativity of 1100 mL. He has put out 10 mL from the chest tube. He weighs 58.3 kg compared to 58.0 kg yesterday. PHYSICAL EXAMINATION: His lungs show equal breath sounds on either side without wheezes, rhonchi or rales. Percussion note is full to the diaphragm. Cardiac exam is without murmurs, clicks, gallops or rubs. I cannot feel his point of maximum impulse (PMI). S1 and S2 are normal. Abdomen is soft, nontender. Bowel sounds are positive. There is no hepatomegaly. No costovertebral angle tenderness. Extremities show no pretibial edema. No calf tenderness. No differential swelling of the upper extremities. Skin is warm, dry and perfused without cyanosis or mottling, including that of the nail beds and knees. Neck is supple. There is no jugular venous distention. No subcutaneous emphysema. Trachea is midline. Mouth shows his mucous membranes to be pink and moist. Lips and commissures without lesions. There is no thrush. Eyes show his pupils to be equal and reactive. Extraocular motors intact. Sclera nonicteric. Neuro shows II through XII intact along with gross motor and gross sensation intact. Gait is also intact. Psychiatric shows him to be awake and alert, oriented times three with appropriate mood and affect and conversational. His white count today is 15.9 with a hemoglobin and hematocrit of 11.7 and 35.8. Platelet count is 224 with a differential that shows 61% neutrophils, 28% lymphocytes, 8% monocytes. There are no immature forms. No toxic granulations. His electrolytes are normal with a BUN and creatinine of 13 and 0.83, glucose of 101 and calcium of 8.5. Influenza A and B are negative. His chest x-ray today shows his lung fully expanded to the chest wall. Chest tube is in excellent position. Costophrenic angles are sharp and there is no subcutaneous emphysema. IMPRESSION: 1. Recurrent spontaneous pneumothorax on the right. 2. Tobacco abuse. 3. Distal emphysematous bleb disease. 4. History of ulcerative colitis. PLAN/DISCUSSION: He is to be taken on the operating room on Saturday where we will undertake a wedge resection of the upper lobe bleb which is clearly seen on the coronal view, a CT scan and a talc pleurodesis.
[2018-12-13 16:00] VITALS: BP 118/71
[2018-12-13 20:00] VITALS: BP 140/81
[2018-12-14] VITALS (7 sets, daily range): BP systolic 108–131; BP diastolic 70–82
[2018-12-14] MEDS: LEVALBUTEROL 1.25 MG/0.5 ML CONCENTRATE NEB NEB SCH ×4 (00:53→20:12)
[2018-12-14] MEDS: PERCOCET 5MG/325MG TAB PO PRN ×4 (01:01→23:00)
[2018-12-14] MEDS: KETOROLAC 30 MG/ML VIAL (J1885) IV SCH ×4 (03:37→21:24)
[2018-12-14 05:59] LABS: BASO # 0.1 10^3/uL (0.0-0.2); BASO % 0.7 % (0.0-1.0); EOS # 0.5 10^3/uL (0.0-0.50); EOS % 3.8 % (0.0-3.0); HEMATOCRIT 38.1 % (42.0-52.0); LYMPH # 4.1 10^3/uL (1.5-6.5); MEAN CORPUSCULAR HEMOGLOBIN 29.6 pg (27.0-33.0); MEAN CORPUSCULAR HGB CONC 31.5 g/dl (32.0-36.5); MEAN CORPUSCULAR VOLUME 94.1 fl (80.0-96.0); MONO # 1.1 10^3/uL (0.0-0.8); MONO % 8.3 % (0.0-5.0); NEUTROPHILS # 7.4 10^3/uL (1.8-7.7); NEUTROPHILS % 55.9 % (36.0-66.0); PLATELET COUNT, AUTOMATED 227 10^3/uL (150-450); RED BLOOD COUNT 4.05 10^6/uL (4.30-6.10); WHITE BLOOD COUNT 13.3 10^3/uL (4.0-10.0)
[2018-12-14 06:21] LABS: BLOOD UREA NITROGEN 16 MG/DL (7-18); CALCIUM LEVEL 8.8 MG/DL (8.5-10.1); CARBON DIOXIDE LEVEL 32 MEQ/L (21-32); CHLORIDE LEVEL 105 MEQ/L (98-107); GLOMERULAR FILTRATION RATE > 60.0 (>60); GLUCOSE, FASTING 89 MG/DL (70-100); POTASSIUM SERUM 4.6 MEQ/L (3.5-5.1); SODIUM LEVEL 142 MEQ/L (136-145)
--- NOTE | 2018-12-14 09:08 | REP ---
PA and lateral chest: Comparison is 12/12/2018. The right thoracotomy tube is unchanged. The tiny right apical pneumothorax is unchanged measuring only a few millimeters size. Slight blunting of the right costophrenic angle is unchanged. Lung guzman otherwise clear. Cardiac size normal. The abdifatah, mediastinum, skeletal structures are unremarkable. Impression: There is no interval change. Electronically Signed by Jeremy Lucas MD 12/13/2018 07:59 A
[2018-12-14] MEDS: HEPARIN SOD (PORCINE) 5000 UNITS/ML VIAL SC SCH ×2 (09:23→21:24)
[2018-12-14] MEDS: NICOTINE 21MG/24HR 1 EA TRANSDERMAL TD SCH (09:24)
[2018-12-14] MEDS: PANTOPRAZOLE 40MG TAB (PROTONIX) PO SCH (09:24)
[2018-12-14] MEDS: MOM 30ML SUSPENSION UDC PO SCH (09:24)
[2018-12-14] MEDS: DOCUSATE SODIUM 100 MG CAP PO SCH ×2 (09:24→21:23)
--- NOTE | 2018-12-14 10:09 | REP ---
REASON: Followup pneumothorax. COMPARISON: Multiple, the latest yesterday. Cardiomediastinal silhouette is unchanged. There is a tiny right apical pneumothorax. Chest tube is unchanged. No new abnormal lung opacities have developed. The heart is not enlarged and the pleural angles are sharp. There is no change in the osseous structures. IMPRESSION: Tiny right apical pneumothorax. Electronically Signed by Jason Sherwood DO 12/14/2018 01:50 P
[2018-12-15] VITALS (11 sets, daily range): BP systolic 97–134; BP diastolic 51–90
[2018-12-15] MEDS: LEVALBUTEROL 1.25 MG/0.5 ML CONCENTRATE NEB NEB SCH ×4 (01:07→20:49)
[2018-12-15] MEDS: KETOROLAC 30 MG/ML VIAL (J1885) IV SCH ×4 (04:38→21:57)
[2018-12-15 05:54] LABS: BASO # 0.1 10^3/uL (0.0-0.2); BASO % 0.5 % (0.0-1.0); EOS # 0.7 10^3/uL (0.0-0.50); EOS % 4.9 % (0.0-3.0); HEMATOCRIT 40.1 % (42.0-52.0); HEMOGLOBIN 12.9 g/dl (13.5-17.5); LYMPH # 2.5 10^3/uL (1.5-6.5); LYMPH % 18.7 % (24.0-44.0); MEAN CORPUSCULAR HEMOGLOBIN 29.2 pg (27.0-33.0); MEAN CORPUSCULAR HGB CONC 32.2 g/dl (32.0-36.5); MEAN CORPUSCULAR VOLUME 90.7 fl (80.0-96.0); MONO # 1.3 10^3/uL (0.0-0.8); MONO % 9.4 % (0.0-5.0); NEUTROPHILS # 8.9 10^3/uL (1.8-7.7); NEUTROPHILS % 66.3 % (36.0-66.0); PLATELET COUNT, AUTOMATED 246 10^3/uL (150-450); RED BLOOD COUNT 4.42 10^6/uL (4.30-6.10); WHITE BLOOD COUNT 13.4 10^3/uL (4.0-10.0)
[2018-12-15] MEDS ORDERED: MUPIROCIN 2% OINT 22 GM TUBE TOP ONE (06:00)
[2018-12-15 06:12] LABS: BLOOD UREA NITROGEN 19 MG/DL (7-18); CALCIUM LEVEL 8.9 MG/DL (8.5-10.1); CARBON DIOXIDE LEVEL 30 MEQ/L (21-32); CHLORIDE LEVEL 104 MEQ/L (98-107); CREATININE FOR GFR 0.86 MG/DL (0.70-1.30); GLOMERULAR FILTRATION RATE > 60.0 (>60); GLUCOSE, FASTING 96 MG/DL (70-100); POTASSIUM SERUM 4.9 MEQ/L (3.5-5.1); SODIUM LEVEL 137 MEQ/L (136-145)
[2018-12-15] MEDS: MOM 30ML SUSPENSION UDC PO SCH (08:02)
[2018-12-15] MEDS: NICOTINE 21MG/24HR 1 EA TRANSDERMAL TD SCH (08:02)
[2018-12-15] MEDS: DOCUSATE SODIUM 100 MG CAP PO SCH ×2 (08:02→21:57)
[2018-12-15] MEDS: PERCOCET 5MG/325MG TAB PO PRN (08:03)
[2018-12-15] MEDS: PANTOPRAZOLE 40MG TAB (PROTONIX) PO SCH (08:03)
[2018-12-15] MEDS: HEPARIN SOD (PORCINE) 5000 UNITS/ML VIAL SC SCH ×2 (08:03→21:58)
[2018-12-15] MEDS ORDERED: MUPIROCIN 2% OINT 22 GM TUBE As Ordered ONE (08:10)
[2018-12-15] MEDS ORDERED: BUPIVACAINE HCL 0.25% 30 ML VIAL As Ordered ONE ×2 (08:10→12:28)
[2018-12-15] MEDS ORDERED: BUPIVACAINE LIPOSOME/PF 1.3% 20ML VIAL (13.3MG/ML)(EXPAREL)(C9290 PER1MG) As Ordered ONE (08:10)
[2018-12-15] MEDS ORDERED: CETACAINE SPRAY 5GM As Ordered ONE (08:10)
[2018-12-15] MEDS ORDERED: BUPIVACAINE HCL 0.5% 10 ML VIAL As Ordered ONE (08:10)
--- NOTE | 2018-12-15 08:17 | REP ---
Chest x-ray: Two views. History: Pneumothorax. Comparison study: December 14, 2018. Findings: EKG monitoring electrodes overlie the chest. Right apical chest tube remains in place. There is a small right apical pneumothorax again seen measuring approximately 6 mm at the apex. This is unchanged from the previous day's film. Lung guzman are otherwise clear. Cardiomediastinal silhouette is unremarkable. Impression: Small right apical pneumothorax again seen. Right chest tube in place. No significant change. Electronically Signed by Chuck Lyman MD 12/15/2018 08:08 A
--- NOTE | 2018-12-15 08:28 | IPN ---
DATE: 12/14/2018 Mr. Ruby is breathing well and his pain is being well controlled at the chest tube insertion site. His vital signs show a T-max of 98.6 with a heart rate that ranges between 72 and 96 in a sinus rhythm, a respiratory rate of 18 to 16 without the use of accessory muscles, who is 98% saturated on room air and whose blood pressure is ranging between 131/82 to 108/70. His intake and output the past 24 hours has been recorded as 960 in and 2710 out for a negativity of 1700 mL. He has put out 10 mL from the chest tube and there is no air leak. Weight today is 59.7 kg compared to 58.3 kg yesterday. On physical examination, his lungs show equal breath sounds on either side. There are no wheezes, rhonchi or rales. Percussion note is full to the diaphragm. Cardiac exam is without murmurs, clicks, gallops or rubs. I cannot feel his point of maximum impulse (PMI). S1 and S2 are normal. Abdomen is soft, nontender. Bowel sounds are positive. There is no hepatomegaly. No costovertebral angle tenderness. Extremities show no pretibial edema. No calf tenderness. No differential swelling of the upper extremities. Skin is warm, dry and perfused without cyanosis or mottling, including that of the nail beds and knees. Neck is supple. There is no jugular venous distention. No subcutaneous emphysema. Trachea is midline. Mouth shows his mucous membranes to be pink and moist. Lips and commissures without lesions. There is no thrush. Eyes show his pupils to be equal and reactive. Extraocular motors intact. Sclera nonicteric. Neurologic shows II through XII intact along with gross motor and gross sensation intact. Gait is not tested. Psychiatric shows him to be awake and alert, oriented times three with appropriate mood and affect and conversational. His white count today is 13.3 down fro 15.9 yesterday. Hemoglobin and hematocrit are 12.0 and 38.1, essentially unchanged from yesterday, with a platelet count of 227 and stable. Differential shows 55% neutrophils, 31% lymphocytes, 8% monocytes. There are no immature forms and no toxic granulations. His electrolytes are normal with a BUN and creatinine of 16 and 0.90, glucose of 89 and calcium of 8. He continues on Toradol. His influenza A and B are negative. His chest x-ray shows his lung fully expanded to the chest wall. Chest tube is in a good place. There is no subcutaneous emphysema. There is a small apical air space in the right upper hemithorax. Costophrenic angles are sharp. IMPRESSION: 1. Recurrent pneumothorax right side. 2. Tobacco abuse. 3. Distal emphysematous bleb disease. 4. History of ulcerative colitis. PLAN/DISCUSSION: I will take him to the operating room tomorrow where I will undertake talc pleurodesis and a wedge resection of his right upper lobe.
[2018-12-15] MEDS ORDERED: MOM 30ML SUSPENSION UDC PO SCH (09:00)
[2018-12-15] MEDS ORDERED: PANTOPRAZOLE 40MG TAB (PROTONIX) PO SCH (09:00)
[2018-12-15] MEDS ORDERED: SLF 3 ML SYR IV PRN (11:00)
[2018-12-15] MEDS ORDERED: LIDOCAINE 2% INJ 100 MG/5 ML SDV (FOR ANES.) As Ordered ONE (12:15)
[2018-12-15] MEDS ORDERED: ROCURONIUM BROMIDE 50 MG/5 ML VIAL As Ordered ONE (12:15)
[2018-12-15] MEDS ORDERED: PROPOFOL 200 MG/20 ML VIAL As Ordered ONE (12:15)
[2018-12-15] MEDS ORDERED: MIDAZOLAM INJ 2 MG/2 ML VIAL (J2250) As Ordered ONE ×4 (12:16→15:50)
[2018-12-15] MEDS ORDERED: fentaNYL 250 MCG/5 ML INJECTION (J3010) As Ordered ONE (12:16)
[2018-12-15] MEDS ORDERED: fentaNYL 100 MCG/2 ML INJECTION (J3010) As Ordered ONE ×3 (12:18→15:50)
[2018-12-15] MEDS ORDERED: TALCAIR POWDER BLOWER (CAN ONLY BE USED WITH 3GM TALC VIAL) XX ONE (12:36)
[2018-12-15] MEDS ORDERED: STERILE TALC POWDER 3GM VIAL As Ordered ONE (12:36)
[2018-12-15] MEDS ORDERED: ceFAZolin 2 GM/D5W 50 ML IV BAG (J0690 PER 500MG) As Ordered ONE (12:42)
[2018-12-15] MEDS ORDERED: fentaNYL 100 MCG/2 ML INJECTION (J3010) IV ONE (13:30)
[2018-12-15] MEDS ORDERED: BISACODYL 10 MG SUPP PR PRN (13:30)
[2018-12-15] MEDS ORDERED: LEVALBUTEROL 1.25 MG/0.5 ML CONCENTRATE NEB NEB PRN (13:30)
[2018-12-15] MEDS ORDERED: NORCO, ANEXSIA 5/325MG TABLET (HYDROcodone/ACETAMINOPHEN) PO PRN (13:30)
[2018-12-15] MEDS ORDERED: ONDANSETRON 4MG/2ML VIAL (J2405) IV PRN ×3 (13:30→16:00)
[2018-12-15] MEDS ORDERED: PERCOCET 5MG/325MG TAB PO PRN ×2 (13:30)
[2018-12-15] MEDS ORDERED: ACETAMINOPHEN TAB 650MG DOSE (2X325MG) PO PRN (13:30)
[2018-12-15] MEDS ORDERED: MIDAZOLAM INJ 2 MG/2 ML VIAL (J2250) IV ONE (13:30)
[2018-12-15] MEDS ORDERED: dexameTHASONE 4 MG/ML 1ML VIAL (J1100) As Ordered ONE (13:41)
[2018-12-15] MEDS ORDERED: SLF 3 ML SYR IV SCH (14:00)
[2018-12-15] MEDS ORDERED: ONDANSETRON 4MG/2ML VIAL (J2405) As Ordered ONE (14:09)
[2018-12-15] MEDS ORDERED: GLYCOPYRROLATE INJ 0.2 MG/ML 2 ML VIAL As Ordered ONE (14:13)
[2018-12-15] MEDS ORDERED: LIDOCAINE PRES-FREE 2% 10ML AMP As Ordered ONE (14:55)
[2018-12-15] MEDS ORDERED: FENTANYL 2MCG/ML BUPIVACAINE 0.0625% NACL 250ML IV BAG As Ordered ONE (15:05)
[2018-12-15] MEDS ORDERED: HYDROMORPHONE HCL 0.5 MG/ 0.5 ML SYRINGE (J1170 PER 1) As Ordered ONE ×2 (15:08→15:53)
[2018-12-15] MEDS: HYDROMORPHONE HCL 0.5 MG/ 0.5 ML SYRINGE (J1170 PER 1) IV PRN ×4 (15:08→15:33)
--- NOTE | 2018-12-15 15:24 | RO ---
DATE OF PROCEDURE: 12/15/2018 PREPROCEDURE DIAGNOSIS: Recurrent right pneumothorax. POSTPROCEDURE DIAGNOSIS: Recurrent right pneumothorax. PROCEDURE: Right upper lobe wedge resection, talc pleurodesis with video-assisted thoracoscopic surgery (VATS) techniques and five level rib block. SURGEON: Jerrell Prince MD MOBILE MECHANIC: ANESTHESIA: FINDINGS: The lung was quite blackened. Pictures were taken. Anthracotic patches densely distributed over the entire lung. There was one bleb that I could see and this was resected with a travis wedge. The pleural surface of the chest wall was uniformly coated with talc. PROCEDURE: Under satisfactory general anesthesia and after double lumen tube intubation, the patient was prepped and draped in the usual sterile fashion. A mid axillary line for port incision was made and a 5 mm port was placed. Under insufflation the thoracoscope was placed. The above findings were noted. There was one adhesion which was freed with electrocautery. The upper lobe was thoroughly inspected and the bleb which showed on the coronal view was found. The upper portion of the apex was then removed with a 4.8 mm stapler in two firings. This was delivered through the 12 mm port that had previously been placed and sent to pathology for examination. Talc was then uniformly insufflated throughout the entire parietal and pleural surface. Two chest tubes were placed, both #24, one straight and one angled, anteriorly and posteriorly respectively. These were secured to the chest wall with #0 silk suture. They were placed through the 5 mm port incisions. A five level rib block consisting of Exparel was then instilled and the remainder of the Exparel was instilled around the incisions. The posterior incision was closed with running #0 Vicryl sutures for the extrathoracic muscles running #3-0 Vicryl for the subcutaneous tissue and running #4-0 Monocryl subcuticular for the skin. The patient tolerated the procedure well and left the operating room in satisfactory condition for the recovery room.
[2018-12-15 15:30] LABS: ABG BASE EXCESS -0.8 (-2.0-2.0); ABG HCO3 25.1 MEQ/L (22.0-26.0); ABG O2 SATURATION 99.1 % (95.0-99.0); ABG PARTIAL PRESSURE CO2 45.8 mmHg (35.0-45.0); ABG PARTIAL PRESSURE O2 140.8 mmHg (75.0-100.0); ABG STANDARD HCO3 23.9 MEQ/L (22.0-26.0); ABG TOTAL CO2 26.5 MEQ/L (22.0-29.0); ABG pH (ARTERIAL) 7.356 UNITS (7.350-7.450)
[2018-12-15 15:32] LABS: BASO # 0.1 10^3/uL (0.0-0.2); BASO % 0.3 % (0.0-1.0); EOS # 0.5 10^3/uL (0.0-0.50); EOS % 2.3 % (0.0-3.0); HEMATOCRIT 41.2 % (42.0-52.0); HEMOGLOBIN 13.5 g/dl (13.5-17.5); LYMPH # 2.4 10^3/uL (1.5-6.5); LYMPH % 11.1 % (24.0-44.0); MEAN CORPUSCULAR HEMOGLOBIN 30.2 pg (27.0-33.0); MEAN CORPUSCULAR HGB CONC 32.8 g/dl (32.0-36.5); MEAN CORPUSCULAR VOLUME 92.2 fl (80.0-96.0); MONO # 0.9 10^3/uL (0.0-0.8); NEUTROPHILS # 17.6 10^3/uL (1.8-7.7); NEUTROPHILS % 81.8 % (36.0-66.0); PLATELET COUNT, AUTOMATED 255 10^3/uL (150-450); RED BLOOD COUNT 4.47 10^6/uL (4.30-6.10); WHITE BLOOD COUNT 21.5 10^3/uL (4.0-10.0)
[2018-12-15] MEDS: fentaNYL 100 MCG/2 ML INJECTION (J3010) IV PRN ×2 (15:50→16:05)
[2018-12-15] MEDS: MIDAZOLAM INJ 2 MG/2 ML VIAL (J2250) IV PRN ×2 (15:50→15:55)
[2018-12-15 15:54] LABS: BLOOD UREA NITROGEN 19 MG/DL (7-18); CALCIUM LEVEL 9.1 MG/DL (8.5-10.1); CARBON DIOXIDE LEVEL 29 MEQ/L (21-32); CHLORIDE LEVEL 102 MEQ/L (98-107); GLOMERULAR FILTRATION RATE > 60.0 (>60); GLUCOSE, FASTING 117 MG/DL (70-100); POTASSIUM SERUM 4.5 MEQ/L (3.5-5.1); SODIUM LEVEL 136 MEQ/L (136-145)
[2018-12-15] MEDS ORDERED: EPIDURAL/PCA KEYS XX PRN (16:00)
[2018-12-15] MEDS ORDERED: FENTANYL/BUPIVACAINE/NACL BAG 250 ML EPIDURAL SCH (16:00)
[2018-12-15] MEDS ORDERED: WALLBOXKEY XX PRN (16:00)
[2018-12-15] MEDS ORDERED: METOCLOPRAMIDE INJ 10MG/2ML VIAL (J2765) IV PRN (16:00)
[2018-12-15] MEDS ORDERED: diphenhydrAMINE INJ 50MG/ML VIAL (J1200) IV PRN (16:00)
[2018-12-15] MEDS ORDERED: NALOXONE INJ 0.4 MG/1 ML VIAL (J2310) IV PRN (16:00)
[2018-12-15] MEDS ORDERED: fentaNYL 100 MCG/2 ML INJECTION (J3010) IV PRN (16:00)
--- NOTE | 2018-12-15 16:58 | REP ---
CHEST, PORTABLE: AP portable view of the chest is performed. Comparison is made with prior study of the same day. There is placement of a second right chest tube superiorly. There is possibly a minuscule right apical pneumothorax. Mild air is seen in the adjacent right supraclavicular soft-tissues. No other acute change is seen. Electronically Signed by Jeremy Gilbert MD 12/15/2018 06:34 P
[2018-12-15] MEDS: KCL 20MEQ IN D5/NS 1000ML 1,000 ML IV SCH (17:28)
[2018-12-15] MEDS: ceFAZolin SOD 1 GM in D5W MINI-BAG PLUS 50 ML IV SCH (21:56)
[2018-12-16] VITALS (11 sets, daily range): BP systolic 101–145; BP diastolic 59–83
[2018-12-16] MEDS: LEVALBUTEROL 1.25 MG/0.5 ML CONCENTRATE NEB NEB SCH ×4 (01:25→21:09)
[2018-12-16] MEDS: KETOROLAC 30 MG/ML VIAL (J1885) IV SCH ×4 (04:10→21:47)
[2018-12-16] MEDS: ceFAZolin SOD 1 GM in D5W MINI-BAG PLUS 50 ML IV SCH ×3 (05:21→21:48)
[2018-12-16] MEDS: KCL 20MEQ IN D5/NS 1000ML 1,000 ML IV SCH (05:21)
[2018-12-16 06:02] LABS: ABG BASE EXCESS 1.7 (-2.0-2.0); ABG HCO3 25.8 MEQ/L (22.0-26.0); ABG O2 SATURATION 99.6 % (95.0-99.0); ABG PARTIAL PRESSURE CO2 38.6 mmHg (35.0-45.0); ABG PARTIAL PRESSURE O2 171.6 mmHg (75.0-100.0); ABG STANDARD HCO3 26.1 MEQ/L (22.0-26.0); ABG pH (ARTERIAL) 7.443 UNITS (7.350-7.450)
[2018-12-16 06:12] LABS: BASO # 0.1 10^3/uL (0.0-0.2); BASO % 0.3 % (0.0-1.0); EOS # 0.2 10^3/uL (0.0-0.50); EOS % 0.9 % (0.0-3.0); HEMATOCRIT 37.5 % (42.0-52.0); LYMPH # 2.2 10^3/uL (1.5-6.5); LYMPH % 13.1 % (24.0-44.0); MEAN CORPUSCULAR HEMOGLOBIN 29.4 pg (27.0-33.0); MEAN CORPUSCULAR VOLUME 91.9 fl (80.0-96.0); MONO # 1.5 10^3/uL (0.0-0.8); MONO % 8.9 % (0.0-5.0); NEUTROPHILS # 12.7 10^3/uL (1.8-7.7); NEUTROPHILS % 75.4 % (36.0-66.0); RED BLOOD COUNT 4.08 10^6/uL (4.30-6.10); WHITE BLOOD COUNT 16.9 10^3/uL (4.0-10.0)
[2018-12-16 06:30] LABS: BLOOD UREA NITROGEN 22 MG/DL (7-18); CALCIUM LEVEL 8.6 MG/DL (8.5-10.1); CARBON DIOXIDE LEVEL 29 MEQ/L (21-32); CHLORIDE LEVEL 103 MEQ/L (98-107); CREATININE FOR GFR 1.05 MG/DL (0.70-1.30); GLOMERULAR FILTRATION RATE > 60.0 (>60); GLUCOSE, FASTING 117 MG/DL (70-100); POTASSIUM SERUM 4.5 MEQ/L (3.5-5.1); SODIUM LEVEL 138 MEQ/L (136-145)
[2018-12-16 06:42] LABS: PLATELET COUNT, AUTOMATED 245 10^3/uL (150-450)
[2018-12-16] MEDS: DOCUSATE SODIUM 100 MG CAP PO SCH ×2 (09:00→21:48)
[2018-12-16] MEDS: MOM 30ML SUSPENSION UDC PO SCH (09:00)
--- NOTE | 2018-12-16 09:12 | REP ---
CHEST X-RAY: TWO VIEWS. HISTORY: Pneumothorax. COMPARISON STUDY: December 15, 2018 FINDINGS: EKG monitoring electrodes are seen. There are two right-sided chest tubes at the apex. There are pulmonary sutures in the apex. No definite pneumothorax is seen. There is some extrathoracic soft tissue emphysema in the supraclavicular and neck soft tissues and along the chest wall on the right side. An epidural catheter is noted in place. The lungs are well inflated and clear. Heart is not enlarged. No infiltrate is seen. IMPRESSION: Two right chest tubes in place. No discernible pneumothorax. Some extrathoracic emphysema. Electronically Signed by Chuck Lyman MD 12/16/2018 08:24 P
[2018-12-16] MEDS: PANTOPRAZOLE 40MG TAB (PROTONIX) PO SCH (10:10)
[2018-12-16] MEDS: HEPARIN SOD (PORCINE) 5000 UNITS/ML VIAL SC SCH ×2 (10:11→21:47)
[2018-12-16] MEDS: BUPIVACAINE/NACL BAG 250 ML EPIDURAL SCH (10:54)
[2018-12-16] MEDS ORDERED: NS 1,000 ML IV SCH (11:09)
[2018-12-16] MEDS ORDERED: NALBUPHINE HCL 10 MG/ML AMP (J2300) IV PRN (11:15)
[2018-12-16] MEDS ORDERED: EPIDURAL/PCA KEYS XX PRN (11:15)
--- NOTE | 2018-12-16 11:55 | IPN ---
DATE: 12/16/2018 This is now the first postoperative day for Mr. Ruby. His pain was not well controlled last night with the epidural. The epidural has been changed over to bupivacaine. His vital signs show a T-max of 100.0 with a heart rate that ranges between 92 and 83 in a sinus rhythm, respiratory rate 18 to 20 without the use of accessory muscles, who is 99-100% saturated on 2 liters of nasal canal and his blood pressure is ranging between 101/67 to 124/59. His intake and output the past 24 hours has been recorded as 855 in and 4037 out for a negativity of 3182 mL. He has put 3950 mL out in urine and 67 mL out on the check tube. He does have an air leak with forceful cough. On physical examination, his lungs show equal breath sounds on either side. There are scattered rhonchi throughout. Percussion was full to the diaphragm. Cardiac exam is without murmurs, clicks, gallops or rubs. I cannot feel his point of maximum impulse (PMI). S1 and S2 are normal. Abdomen is soft, nontender. Bowel sounds are positive. There is no hepatomegaly. No costovertebral angle tenderness. He is slightly tympanic and distended. Extremities show no pretibial edema. No calf tenderness. No differential swelling of the upper extremities. Skin is warm, dry and perfused without cyanosis or mottling, including that of the nail beds and knees. Neck is supple. There is no jugular venous distention. No subcutaneous emphysema. Trachea is midline. Mouth shows his mucous membranes to be pink and moist. Lips and commissures without lesions. There is no thrush. Eyes show his pupils to be equal and reactive. Extraocular motors intact. Sclera nonicteric. Neurologic shows II through XII intact along with gross motor and gross sensation intact. Gait is not tested. Psychiatric shows him to be awake and alert, oriented times three with appropriate mood and affect and conversational. His white count today is 16.9 down from 21.5 yesterday in the recovery room. Hemoglobin and hematocrit are 12.0 and 37.5 with a platelet count of 245 and stable. Differential shows 75% neutrophils, 13% lymphocytes, 8% monocytes. There are no immature forms and no toxic granulations. Electrolytes are normal with a BUN and creatinine of 22 and 1.05, glucose of 117 and a calcium of 8.6. He remains on Toradol. Today's blood gases show a pH of 7.44, pCO2 of 38 pO2 of 171 with a base access of 1.7. His chest x-ray today shows the lung fully expanded to the chest wall. There is no subcutaneous emphysema in the neck although I do not feel it on physical examination. Chest tubes are in excellent position. Costophrenic angle is sharp. IMPRESSION: 1. Recurrent spontaneous pneumothorax on the right. 2. Tobacco abuse. 3. Distal emphysematous bleb disease. 4. History of ulcerative colitis. PLAN/DISCUSSION: I will change him over to patient-controlled analgesia (GAME SHOW HOST) today. I will continue with his chest tubes on suction.
[2018-12-16] MEDS: MORPHINE 1MG/ML IN 0.9% NACL 100ML IV BAG IV PRN (13:40)
[2018-12-17] VITALS: BP 125/72
[2018-12-17] MEDS: LEVALBUTEROL 1.25 MG/0.5 ML CONCENTRATE NEB NEB SCH ×4 (02:00→20:00)
[2018-12-17] MEDS: KCL 20MEQ IN D5/NS 1000ML 1,000 ML IV SCH ×3 (03:00→18:40)
[2018-12-17] MEDS: KETOROLAC 30 MG/ML VIAL (J1885) IV SCH ×4 (03:23→21:30)
[2018-12-17 04:00] VITALS: BP 113/60
[2018-12-17] MEDS: ceFAZolin SOD 1 GM in D5W MINI-BAG PLUS 50 ML IV SCH ×2 (06:10→13:10)
[2018-12-17 06:17] LABS: BASO # 0.1 10^3/uL (0.0-0.2); BASO % 0.7 % (0.0-1.0); EOS # 0.7 10^3/uL (0.0-0.50); EOS % 4.8 % (0.0-3.0); HEMOGLOBIN 12.1 g/dl (13.5-17.5); LYMPH # 4.2 10^3/uL (1.5-6.5); MEAN CORPUSCULAR HEMOGLOBIN 29.4 pg (27.0-33.0); MEAN CORPUSCULAR VOLUME 94.7 fl (80.0-96.0); MONO # 1.6 10^3/uL (0.0-0.8); MONO % 11.8 % (0.0-5.0); NEUTROPHILS # 7.2 10^3/uL (1.8-7.7); NEUTROPHILS % 52.2 % (36.0-66.0); PLATELET COUNT, AUTOMATED 249 10^3/uL (150-450); RED BLOOD COUNT 4.12 10^6/uL (4.30-6.10); WHITE BLOOD COUNT 13.9 10^3/uL (4.0-10.0)
[2018-12-17 06:38] LABS: BLOOD UREA NITROGEN 16 MG/DL (7-18); CALCIUM LEVEL 8.7 MG/DL (8.5-10.1); CARBON DIOXIDE LEVEL 28 MEQ/L (21-32); CHLORIDE LEVEL 108 MEQ/L (98-107); CREATININE FOR GFR 0.88 MG/DL (0.70-1.30); GLOMERULAR FILTRATION RATE > 60.0 (>60); GLUCOSE, FASTING 106 MG/DL (70-100); POTASSIUM SERUM 4.6 MEQ/L (3.5-5.1); SODIUM LEVEL 140 MEQ/L (136-145)
[2018-12-17] MEDS: MORPHINE 1MG/ML IN 0.9% NACL 100ML IV BAG IV PRN (06:45)
[2018-12-17 08:00] VITALS: BP_SYST 111; BP_SYST 121; BP_DIAS 61; BP_DIAS 88
--- NOTE | 2018-12-17 08:21 | REP ---
Chest x-ray: Two views. History: Pneumothorax. Comparison chest x-ray: December 16, 2018. Findings: EKG monitoring electrodes overlie the chest. There are two right-sided chest tubes again noted in place. Some extrathoracic soft tissue emphysema is seen. There is no discernible pneumothorax. An epidural catheter is again noted. The lung guzman are clear except for some postop of opacity adjacent to a suture line in the right apex there is some parenchymal opacity again noted. A levoconvex curve is seen in the thoracic spine. Impression: No significant change from the previous day's study. Electronically Signed by Chuck Lyman MD 12/17/2018 08:13 A
[2018-12-17] MEDS: DOCUSATE SODIUM 100 MG CAP PO SCH ×2 (09:00→21:30)
[2018-12-17] MEDS: MOM 30ML SUSPENSION UDC PO SCH (09:00)
[2018-12-17] MEDS: PANTOPRAZOLE 40MG TAB (PROTONIX) PO SCH (10:11)
[2018-12-17] MEDS: HEPARIN SOD (PORCINE) 5000 UNITS/ML VIAL SC SCH ×2 (10:11→21:29)
[2018-12-17] MEDS: BUPIVACAINE/NACL BAG 250 ML EPIDURAL SCH (11:09)
[2018-12-17 12:00] VITALS: BP 123/72
[2018-12-17 16:00] VITALS: BP 121/64
[2018-12-17 20:00] VITALS: BP 127/70
[2018-12-18] VITALS: BP 120/76
[2018-12-18] MEDS: LEVALBUTEROL 1.25 MG/0.5 ML CONCENTRATE NEB NEB SCH ×4 (02:00→20:00)
[2018-12-18 04:00] VITALS: BP 132/89
[2018-12-18] MEDS: KETOROLAC 30 MG/ML VIAL (J1885) IV SCH ×4 (04:13→21:26)
[2018-12-18] MEDS: KCL 20MEQ IN D5/NS 1000ML 1,000 ML IV SCH (04:13)
[2018-12-18 06:21] LABS: BASO % 0.4 % (0.0-1.0); EOS # 0.6 10^3/uL (0.0-0.50); HEMATOCRIT 35.5 % (42.0-52.0); HEMOGLOBIN 11.3 g/dl (13.5-17.5); LYMPH # 2.5 10^3/uL (1.5-6.5); LYMPH % 21.6 % (24.0-44.0); MEAN CORPUSCULAR HEMOGLOBIN 29.3 pg (27.0-33.0); MEAN CORPUSCULAR HGB CONC 31.8 g/dl (32.0-36.5); MONO # 1.6 10^3/uL (0.0-0.8); NEUTROPHILS # 6.6 10^3/uL (1.8-7.7); NEUTROPHILS % 58.4 % (36.0-66.0); PLATELET COUNT, AUTOMATED 258 10^3/uL (150-450); RED BLOOD COUNT 3.86 10^6/uL (4.30-6.10); WHITE BLOOD COUNT 11.4 10^3/uL (4.0-10.0)
[2018-12-18 06:43] LABS: BLOOD UREA NITROGEN 13 MG/DL (7-18); CALCIUM LEVEL 8.5 MG/DL (8.5-10.1); CARBON DIOXIDE LEVEL 27 MEQ/L (21-32); CHLORIDE LEVEL 108 MEQ/L (98-107); CREATININE FOR GFR 0.76 MG/DL (0.70-1.30); GLOMERULAR FILTRATION RATE > 60.0 (>60); GLUCOSE, FASTING 101 MG/DL (70-100); POTASSIUM SERUM 4.6 MEQ/L (3.5-5.1); SODIUM LEVEL 139 MEQ/L (136-145)
[2018-12-18 08:00] VITALS: BP 118/72
[2018-12-18] MEDS: PANTOPRAZOLE 40MG TAB (PROTONIX) PO SCH (08:36)
[2018-12-18] MEDS: HEPARIN SOD (PORCINE) 5000 UNITS/ML VIAL SC SCH ×2 (08:37→21:26)
[2018-12-18] MEDS: DOCUSATE SODIUM 100 MG CAP PO SCH ×2 (08:37→21:25)
[2018-12-18] MEDS: MOM 30ML SUSPENSION UDC PO SCH (08:37)
--- NOTE | 2018-12-18 08:38 | REP ---
Chest x-ray: Two views. History: Pneumothorax. Findings: A monitoring electrodes overlie the chest. Two right-sided chest tubes remain in place. There is no discernible pneumothorax visible today. An area of parenchymal opacity persists medially in the right apex unchanged. There is slight blunting of the right lateral pleural angle. Epidural catheter is again seen. No new infiltrate. Electronically Signed by Chuck Lyman MD 12/18/2018 08:30 A
--- NOTE | 2018-12-18 09:40 | IPN ---
DATE: 12/17/2018 This is now the second postoperative day for Mr. Ruby. His pain is better controlled today. He ambulated to x-ray today. His vital signs show a maximum temperature (t-max) of 100.4 yesterday afternoon with a heart rate that ranges between 80 and 89 in a sinus rhythm, respiratory rate 18 to 20 without the use of accessory muscles, who is 98% saturated on room air and whose blood pressure is ranging between 134/80 to 142/78. His intake and output the past 24 hours has been recorded as 3085 in and 73102 out for a negativity of 1900 mL. He has put 5 mL out of the chest tube. Weight today is 60.2 kg compared to 56.8 kg yesterday. PHYSICAL EXAMINATION LUNGS: His lungs show some crackles in the right side. I do not hear a pleural friction rub yet, however. Percussion note is full to the diaphragm. The left lung shows normal vesicular sounds. CARDIAC EXAM: Without murmurs, clicks, gallops or rubs. I cannot feel his point of maximum impulse (PMI). S1, S2 are normal. ABDOMEN: Soft, nontender. Bowel sounds positive. There is no hepatomegaly. No costovertebral angle tenderness. EXTREMITIES: Show no pretibial edema. No calf tenderness. No differential swelling of the upper extremities. SKIN: Warm, dry and perfused without cyanosis or mottling, including that of the nail beds and knees. NECK: Supple. There is no jugular venous distention. No subcutaneous emphysema. Trachea is midline. MOUTH: Shows his mucous membranes to be pink and moist. Lips and commissures without lesions. There is no thrush. EYES: Show his pupils to be equal and reactive. Extraocular motion intact. Sclerae anicteric. NEUROLOGIC: Shows II through XII intact with gross motor and gross sensation intact. Gait is not tested. PSYCHIATRIC: Shows him to be awake and alert, oriented times three with appropriate mood and affect and conversational. His white count today is 13.9 with a hemoglobin and hematocrit of 12.1 and 39.0. Platelet count of 249 and stable. Differential shows 52% neutrophils, 30% lymphocytes, 11% monocytes. There are no immature forms and no toxic granulations. Chemistries today show essentially normal electrolytes with a BUN and creatinine of 16 and 0.88, glucose 106, and calcium 8.7. There are no blood gases on him today. His chest x-ray today shows the lung fully expanded to the chest wall. There is minimal subcutaneous emphysema on the lateral superior chest wall. Chest tubes are in good position. Costophrenic angle is sharp. I see no infiltrates. IMPRESSION: 1. Recurrent spontaneous pneumothorax on the right. 2. Tobacco abuse. 3. Distal emphysematous bleb disease. 4. Postoperative day two status post wedge resection of right upper lobe and talc pleurodesis. 5. History of ulcerative colitis. PLAN/DISCUSSION: I will take his chest tube off suction today. Even though his input and output are positive, I will not diurese him, as he is not putting much out of the chest tube.
[2018-12-18 12:00] VITALS: BP 121/71
[2018-12-18] MEDS ORDERED: SLF 3 ML SYR IV PRN (14:45)
[2018-12-18 16:00] VITALS: BP 128/80
[2018-12-18] MEDS: MORPHINE 1MG/ML IN 0.9% NACL 100ML IV BAG IV PRN (16:28)
[2018-12-18 20:00] VITALS: BP 135/89
--- NOTE | 2018-12-18 20:29 | IPN ---
DATE: 12/18/2018 This is now the third postoperative day for Mr. Ruby. His pain is being much better controlled. In fact, the epidural has run out and he has a pain level of 2 to 3. We will see over the next 2 hours if he tolerates his pain regimen with the HOME CARE PROVIDER and if he does then we will remove the epidural and remove the Maddox. His vital signs show a maximum temperature (t-max) of 98.7 with a heart rate that ranges between 70 and 86 in a sinus rhythm, respiratory rate is constant at 18, and who is 99% to 100% saturated on room air. His blood pressure is ranging between 132/89 to 118/72. His intake and output the past 24 hours has been recorded as 4155 in and 4812 out for a negativity of 657 mL. He has 2310 in oral intake and 1845 in IV intake. Weight today is 60.5 kg compared to 60.2 kg yesterday. PHYSICAL EXAMINATION LUNGS: His lungs show normal vesicular sounds that are equal on either side. Percussion note is full to the diaphragm. CARDIAC EXAM: Without murmurs, clicks, gallops or rubs. I cannot feel his point of maximum impulse (PMI). S1, S2 are normal. ABDOMEN: Soft, nontender. Bowel sounds positive. There is no hepatomegaly. No costovertebral angle tenderness. EXTREMITIES: Show no pretibial edema. No calf tenderness. No differential swelling of the upper extremities. SKIN: Warm, dry and perfused without cyanosis or mottling, including that of the nail beds and knees. NECK: Supple. There is no jugular venous distention. No subcutaneous emphysema. Trachea is midline. MOUTH: Shows his mucous membranes to be pink and moist. Lips and commissures without lesions. There is no thrush. EYES: Show his pupils to be equal and reactive. Extraocular motion intact. Sclerae anicteric. NEUROLOGIC: Shows II through XII intact with gross motor and gross sensation intact. Gait is not tested. PSYCHIATRIC: Shows him to be awake and alert, oriented times three with appropriate mood and affect and conversational. His white count today is down to 11.4 with a hemoglobin and hematocrit of 11.3 and 35.5 secondary to hemodilution from 12.1 and 39.0. Platelet count is 258. Differential shows 58% neutrophils, 21% lymphocytes, 14% monocytes. There are no immature forms and no toxic granulations. Electrolytes are normal with a BUN and creatinine of 13 and 0.76 and a glucose 101, and calcium 8.5. His chest x-ray today shows the lung fully expanded to the chest wall. Chest tubes are in good position. Costophrenic angle is sharp. There is minimal subcutaneous emphysema at the upper portion of the superior chest. IMPRESSION: 1. Postoperative day #3 status post talc pleurodesis and wedge resection. 2. Recurrent spontaneous pneumothorax on the right times three. 3. Tobacco abuse. 4. Distal emphysematous bleb disease. 5. History of ulcerative colitis. PLAN/DISCUSSION: I will keep his chest tube off suction today. As noted above, we will probably discontinue his epidural and remove the Maddox. I am slightly concerned about all the IV he got yesterday and I will check with the nursing staff as to why the IV is still going.
[2018-12-18] MEDS: SLF 3 ML SYR IV SCH (21:26)
[2018-12-19] MEDS: LEVALBUTEROL 1.25 MG/0.5 ML CONCENTRATE NEB NEB SCH ×3 (01:23→13:16)
[2018-12-19 04:00] VITALS: BP 127/82
[2018-12-19] MEDS: KETOROLAC 30 MG/ML VIAL (J1885) IV SCH ×2 (04:13→09:19)
[2018-12-19] MEDS: SLF 3 ML SYR IV SCH ×2 (04:13→14:45)
[2018-12-19 05:28] LABS: BASO # 0.1 10^3/uL (0.0-0.2); BASO % 0.8 % (0.0-1.0); EOS # 0.6 10^3/uL (0.0-0.50); EOS % 4.6 % (0.0-3.0); HEMATOCRIT 36.5 % (42.0-52.0); HEMOGLOBIN 11.9 g/dl (13.5-17.5); LYMPH # 3.1 10^3/uL (1.5-6.5); LYMPH % 24.1 % (24.0-44.0); MEAN CORPUSCULAR HEMOGLOBIN 30.4 pg (27.0-33.0); MEAN CORPUSCULAR HGB CONC 32.6 g/dl (32.0-36.5); MEAN CORPUSCULAR VOLUME 93.1 fl (80.0-96.0); MONO # 1.3 10^3/uL (0.0-0.8); NEUTROPHILS # 7.8 10^3/uL (1.8-7.7); NEUTROPHILS % 59.8 % (36.0-66.0); PLATELET COUNT, AUTOMATED 285 10^3/uL (150-450); RED BLOOD COUNT 3.92 10^6/uL (4.30-6.10)
[2018-12-19 05:51] LABS: BLOOD UREA NITROGEN 17 MG/DL (7-18); CALCIUM LEVEL 8.7 MG/DL (8.5-10.1); CARBON DIOXIDE LEVEL 30 MEQ/L (21-32); CHLORIDE LEVEL 105 MEQ/L (98-107); CREATININE FOR GFR 0.85 MG/DL (0.70-1.30); GLOMERULAR FILTRATION RATE > 60.0 (>60); GLUCOSE, FASTING 96 MG/DL (70-100); POTASSIUM SERUM 4.1 MEQ/L (3.5-5.1); SODIUM LEVEL 139 MEQ/L (136-145)
[2018-12-19 08:00] VITALS: BP 140/78
--- NOTE | 2018-12-19 08:41 | REP ---
Chest x-ray: Two views. History: Pneumothorax. Comparison study: December 18, 2018. Findings: Two right-sided chest tubes remain in place. There is no definite apical pleural air collection. Suture line and a small zone of parenchymal opacity persists in the right apex. Very slight blunting of the right lateral pleural angle is seen. Lung guzman are otherwise clear. Electronically Signed by Chuck Lyman MD 12/19/2018 08:32 A
[2018-12-19] MEDS: MOM 30ML SUSPENSION UDC PO SCH (09:00)
[2018-12-19] MEDS: DOCUSATE SODIUM 100 MG CAP PO SCH (09:00)
[2018-12-19] MEDS: HEPARIN SOD (PORCINE) 5000 UNITS/ML VIAL SC SCH (09:19)
[2018-12-19] MEDS: PANTOPRAZOLE 40MG TAB (PROTONIX) PO SCH (09:19)
[2018-12-19] MEDS ORDERED: PERCOCET PO (11:02)
[2018-12-19 12:00] VITALS: BP 122/62
--- NOTE | 2018-12-19 14:21 | REP ---
Chest two views HISTORY: Chest tube removal Comparison: 08:22 a.m. 12/19/2018 Parenchymal density is present in the right upper lobe unchanged compared to the previous study. The left lung is clear. There is blunting of the right costophrenic angle due to a small pleural effusion. The patient is status post right hemithorax chest tube removal. Pneumothorax is present. The heart is normal in size. The pulmonary vasculature is normal in appearance. The bony structure is intact. Subcutaneous emphysema is present overlying the right hemithorax. IMPRESSION: 1. Right upper lobe parenchymal density unchanged compared to the previous study. 2. Small right pleural effusion. 3. The patient is status post chest tube removal. A pneumothorax is present. Electronically Signed by Fidel Richmond MD 12/19/2018 02:13 P
--- NOTE | 2018-12-22 17:31 | DSES ---
DATE OF ADMISSION: 12/10/2018 DATE OF DISCHARGE: 12/19/2018 DISCHARGE DIAGNOSES: 1. Recurrent spontaneous pneumothorax times three on the right side. 2. Postoperative day #4 status post talc pleurodesis and wedge resection of emphysematous bleb. 3. Tobacco abuse. 4. Distal emphysematous bleb disease. 5. History of ulcerative colitis. HOSPITAL COURSE: The patient is a 28-year-old white male who approximately one week prior to coming to the hospital started to experience sudden onset of right sided chest pain. A few days prior to him presenting to the emergency room, his shortness of breath got worse, along with his right sided pain, and finally on the day of admission, he sought medical attention because the pain became excruciating and his shortness of breath became even more intense. He was found to have a pneumothorax on the right side and a chest tube was placed. He had a previous history of at least one, and probably two prior pneumothoraces on that side. He smokes about a pack a day of [place]. 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 He did work in a [employer] in [place] when he had a traumatic left pneumothorax after falling down. He was taken to the operating room where he underwent a talc pleurodesis and wedge resection of the emphysematous blebs. His postoperative air leak disappeared on the second postoperative day and his chest tubes were removed on the fourth postoperative day. Chest x-ray shows his lung fully expanded to the chest wall. He is being discharged today on Percocet one every 6 hours as needed for pain. He will return to see me in 1 week with a chest x-ray. He has been relieved of work duties for at least three weeks with no heavy lifting, as he has to lift 50 [address] his [address] of work now. I extensively counseled him on smoking, and he tells me that he no longer has any desire to smoke. It should be noted that his lungs appeared very blackened for the age of 28 during the VATS procedure.
== END 2018-12-19 16:20 | disposition home or self-care (01) | DRG 120 ==
LOC: M ED 13:52 → M ED INP 15:04 → M PCU 15:32
PROVIDERS: ADMIT Thoracic Surgery (Cardiothoracic Vascular Surgery); ATTEND Thoracic Surgery (Cardiothoracic Vascular Surgery)
PROC: 0W9930Z Drainage of Right Pleural Cavity with Drainage Device, Percutaneous Approach (ICD-10-PCS; 2018-12-10)
PROC: 0BJQ4ZZ Inspection of Pleura, Percutaneous Endoscopic Approach (ICD-10-PCS; 2018-12-15)
PROC: 3E0L3GC Introduction of Other Therapeutic Substance into Pleural Cavity, Percutaneous Approach (ICD-10-PCS; 2018-12-15)
PROC: 0BBC4ZZ Excision of Right Upper Lung Lobe, Percutaneous Endoscopic Approach (ICD-10-PCS; principal; 2018-12-15 12:30)
DX: J93.83 Other pneumothorax (principal); J43.9 Emphysema, unspecified; K51.90 Ulcerative colitis, unspecified, without complications; F17.210 Nicotine dependence, cigarettes, uncomplicated

== ENCOUNTER 2020-10-13 13:20 | Emergency (ER) | payer OTHER ==
[~2020-10-13] VITALS: Ht 175.3 cm; Wt 63.0 kg
[~2020-10-13 13:20] MED LIST: PERCOCET PO
[2020-10-13 13:21] VITALS: BP 162/89
--- OUTSIDE RECORDS SUMMARY | 2020-10-13 13:26 | CCD ---
Author Author [facility] Organization [facility] Address Unknown Phone Unavailable Care Team Providers Care Biochemistry Professor Name Role Phone Carly GILMORE CONTENT STRATEGIST Unavailable Carly GILMORE CONTENT STRATEGIST Unavailable Carly GILMORE CHRISTOPHER CONTENT STRATEGIST Unavailable Carly GILMOREER CONTENT STRATEGIST Unavailable GRUDOWSKI, P CHRISTOPHER CONTENT STRATEGIST Unavailable GRUDOWSKI, P CHRISTOPHER CONTENT STRATEGIST Unavailable GRUDOWSKI, P CHRISTOPHER CONTENT STRATEGIST Unavailable GRUDOWSKI, P CHRISTOPHER CONTENT STRATEGIST Unavailable GRUDOWSKI, P CHRISTOPHER CONTENT STRATEGIST Unavailable GRUDOWSKI, P CHRISTOPHER CONTENT STRATEGIST Unavailable GRUDOWSKI, P CHRISTOPHER CONTENT STRATEGIST Unavailable GRUDOWSKI, P CHRISTOPHER CONTENT STRATEGIST Unavailable GRUDOWSKI, P CHRISTOPHER CONTENT STRATEGIST Unavailable GRUDOWSKI, P CHRISTOPHER CONTENT STRATEGIST Unavailable GRUDOWSKI, P CHRISTOPHER CONTENT STRATEGIST Unavailable GRUDOWSKI, P CHRISTOPHER CONTENT STRATEGIST Unavailable GRUDOWSKI, P CHRISTOPHER CONTENT STRATEGIST Unavailable GRUDOWSKI, P CHRISTOPHER CONTENT STRATEGIST Unavailable GRUDOWSKI, P CHRISTOPHER CONTENT STRATEGIST Unavailable GRUDOWSKI, P CHRISTOPHER CONTENT STRATEGIST Unavailable GRUDOWSKI, P CHRISTOPHER CONTENT STRATEGIST Unavailable GRUDOWSKI, P CHRISTOPHER CONTENT STRATEGIST Unavailable Tarik Valladares DO Unavailable Unavailable [place] Tarik DO Unavailable Unavailable JacquelynTarik zhao DO Unavailable Unavailable Jacquelyn Tarik DO Unavailable Unavailable GALIMIDI BEREKET DPM, J Bereket DPM Unavailable GALIMIDI BEREKET DPM, J Bereket DPM Unavailable GALIMIDI BEREKET DPM, J Ebreket DPM Unavailable GALIMIDI BEREKET DPM, J Bereket DPM Unavailable GALIMIDI BEREKET DPM, J Bereket DPM Unavailable [phone] GALIMIDI BEREKET DPM, J Bereket DPM Unavailable GALIMIDI BEREKET DPM, J Bereket DPM Unavailable [phone] GALIMIDI BEREKET DPM, J Bereket DPM Unavailable GALIMIDI BEREKET DPM, J Bereket DPM Unavailable Re-disclosure Warning The records that you are about to access may contain information from federally-assisted alcohol or drug abuse programs. If such information is present, then the following federally mandated warning applies: This information has been disclosed to you from records protected by federal confidentiality rules (42 CFR part 2). The federal rules prohibit you from making any further disclosure of this information unless further disclosure is expressly permitted by the written consent of the person to whom it pertains or as otherwise permitted by 42 CFR part 2. A general authorization for the release of medical or other information is NOT sufficient for this purpose. The Federal rules restrict any use of the information to criminally investigate or prosecute any alcohol or drug abuse patient.The records that you are about to access may contain highly sensitive health information, the redisclosure of which is protected by Article 27-F of the [facility] Public Health law. If you continue you may have access to information: Regarding HIV / AIDS; Provided by facilities licensed or operated by the [facility] Office of Mental Health; or Provided by the [facility] Office for People With Developmental Disabilities. If such information is present, then the following [facility] mandated warning applies: This information has been disclosed to you from confidential records which are protected by state law. State law prohibits you from making any further disclosure of this information without the specific written consent of the person to whom it pertains, or as otherwise permitted by law. Any unauthorized further disclosure in violation of state law may result in a fine or fpc sentence or both. A general authorization for the release of medical or other information is NOT sufficient authorization for further disc losure. Family History Family Member Name Family Member Gender Family Member Status Date o f Status Description Data Source(s) Unknown Unknown Problem [facility] ([facility]) Unknown Unknown Problem [facility] ([facility]) Unknown Unknown Problem [facility] ([facility]) Unknown Unknown Problem [facility] ([facility]) Unknown Unknown Problem [facility] ([facility]) Encounters Encounter Providers Location Date Indications Data Source(s ) Outpatient Attender: Bereket CUBA DPM, DPM CPSCAORT- CPSCNPOD 06/20/2020 03:16:00 PM EDT [facility] Outpatient Attender: Bereket CUBA DPM DPM CPSCAORT- CPSCNPOD 06/20/2020 08:57:00 AM EDT - 06/20/2020 08:58:00 AM EDT [facility] Patient discharged. Emergency Attender: ERICK GILMORE NPAttend er: Tarik Valladares DO CPSCAORT-ED 06/12/2020 04:51:00 PM EDT - 06/12/2020 05:58:00 PM EDT FOOT PAIN [facility] FOOT PAIN Patient discharged. Insurance Providers Payer name Policy type / Coverage type Policy ID Covered green party ID Covered green party's relationship to hodges Policy [place] Plan Information [employer] COMMUNITY PLAN MCDHMO [id number] SP [id number] MEDICAID [id number] Unemployed [id number] SELF PAY Unemployed [facility] COMMUNITY PL [id number] Unemploye d [id number] [facility] PLAN [id number] Comme rcial Insurance [id number] Medicaid - Off Track [employer] Donte [id number] Medica id [id number] [employer]HC COMMUNITY PLAN XIX [id number] 18 [id number] MEDICAID -O/P EMERGENCY ROOM [id number] SELF PAY ONLY [id number] SP [id number] UNHC AMERICHOICE XIX -HMO [id number] 18 [id number] [facility] O [id number] S [id number] [facility] PLAN Comme rcial Insurance Medicaid - Off Track [employer] Donte Medica id United [facility] Health Maintenance Organization (HMO) Self MEDICAID [id number] SP [id number] SELF PAY UNAVAILABLE SP UNAVAILA BLE SELF PAY UNAVAILABLE SP UNAVAILA BLE HMO BLUE [id number] SP [id number] MEDICAID [id number] SP [id number] BLUE [place] [place] PLAN [id number] SP [id number] Surgeries/Procedures Procedure Description Date Indications Data Source(s) OFFICE OUTPATIENT VISIT 10 MINUTES 06/20/2020 12:00:00 AM EDT [facility] RADEX FOOT COMPLETE MINIMUM 3 VIEWS X-RAY EXAM OF FOOT 05/26 12:00:00 AM EDT [facility] EMERGENCY DEPARTMENT VISIT MODERATE SEVERITY EMERGENCY DEPT VISIT 06/12/2020 12:00:00 AM EDT [facility] Results ID Date Data Source [id number] 06/12/2020 04:51:00 PM EDT [facility] Name: ARIEL RUBY [facility] Rec #: [id number] 5 : 1990 Age/Sex: 29M Date of Service: 06/12/20 PHYSICIAN CHART Physician Documentation [facility] Name: Ariel Ruby Age: 29 yrs Sex: Male : 1990 Arrival Date: 06/12/2020 Time: 16:51 Bed FT3 Private MD: None, Primary Care Provider- ED Physician Tarik Valladares Disposition: 06/12 18:30 Attestation: Patient was seen by the [facility] rc3 Provider. I was personally available in the department for consultation but did not see or discuss the patient with them. HPI: 17:43 This 29 yrs old Male presents to ER via Walk-In cpg with complaints of Foot Pain. 17:43 The patient presents with decreased range of motion, an cpg injury, pain, that is acute. The complaints affect the dorsum of right foot. Context: The problem was sustained at home, resulted from the patient falling, the patient can partially bear weight, the patient is able to ambulate, with mild difficulty. Onset: The symptoms/episode began/occurred acutely, 2 day(s) ago. Treatment prior to arrival includes: no previous treatment. The patient has not experienced similar symptoms in the past. Ariel tripped over a reclining chair notes forefoot pain. He notes he is able to ambulate but it is painful. He did take some acetaminophen for his pain. Historical: - Allergies: Codeine; - Home Meds: 1. None - PMHx: collapased lung; - PSHx: chest tubes x 3; lung surgery; - Med Reconciliation:: Green Alert: The patient's med list is complete to the best of the nurse's/provider's knowledge. Medications reviewed, verbally from patient/family. - Immunization history: All immunizations are up to date. - : Family history not pertinent. - Advance directive: There is no existing advanced directive. Information offered. - Family History:: mother is healthy, Father is healthy. - Social History: Smoking status (Tobacco): Patient states is a light tobacco smoker (<10 cigarettes a day). Preferred Language: [place] Leonean. ROS: 17:45 Constitutional: See HPI. MS/extremity: See HPI. Skin: cpg Negative for abrasions, abscesses, avulsion. Neuro: Negative for acute changes. All other systems are negative. Exam: 17:46 Constitutional: The patient appears alert, appears to be cpg awake, appears well developed, well hydrated, appears well nourished. 17:46 Cardiovascular: Rate: normal, Rhythm: regular, Pulses: Pulses are 2+ in right dorsalis pedis artery and left dorsalis pedis artery. 17:46 Respiratory: the patient does not display signs of respiratory distress, Respirations: normal. 17:46 Musculoskeletal/extremity: ROM: limited active range of motion due to pain, in the right foot, limited passive range of motion due to pain, Perfusion: the extremity is normally perfused throughout, pink, warm, with brisk capillary refill, Sensation intact. 17:46 Skin: injury, is not appreciated, Turgor: is excellent. 17:46 Neuro: Exam negative for focal neuro deficits, motor deficits, sensory deficits. 17:46 Psych: Behavior/mood is pleasant, cooperative. Vital Signs: 17:07 Weight 58.97 kg; Height 5 ft. 10 in. (177.80 cm); sm6 17:09 BP 135 / 80; Pulse 68; Resp 16; Temp 97.5(TE); Pulse Ox 99% sm6 on R/A; 17:07 Body Mass Index 18.65 (58.97 kg, 177.80 cm) sm6 [place] Coma Score: 17:46 Eye Response: spontaneous(4). Verbal Response: oriented(5). cpg Motor Response: obeys commands(6). Total: 15. Procedures: 17:47 Splinting: Splint applied to right foot using alvaro wrap, cpg applied by myself. Examined by me, post splint application: neurovascular intact, 2+ distal pulses palpable, brisk capillary refill noted, Patient tolerated well. MDM: 17:11 Patient medically screened. cpg 17:48 Data reviewed: vital signs, nurses notes, radiologic cpg studies, plain films. Response to treatment: the patient's symptoms have mildly improved after treatment, Treatment plan was developed and agreed upon, and as a result, I will discharge patient. ED course: Patient has been stable while in the department. The x-rays are negative for fracture dislocation. He was discharged with an Alvaro wrap and ibuprofen. Follow-up with podiatry in a week if his symptoms are persisting. 06/12 17:13 Order name: Foot Rt Min 3 Views Each - Xray cpg Dispensed Medications: No medications were administered Disposition Summary: 06/12/20 17:49 Discharge Ordered Location: Home/Self Care cpg Problem: new cpg Symptoms: have improved cpg Condition: Good cpg Diagnosis - Contusion of right foot cpg Followup: cpg - With: Bereket Kauffman DPM - When: 1 week - Reason: Recheck today's complaints Discharge Instructions: - Discharge Summary Sheet cpg - Contusion, [id number] cpg Forms: - Medication Reconciliation cpg Prescriptions: - Ibuprofen 800 mg Oral Tablet - take 1 tablet by ORAL route every 8 hours As needed cpg take with food; 30 tablet; Refills: 0, Product Selection Permitted Signatures: Dispatcher [employer] EDMS Erick Gilmore, CONTENT STRATEGIST CONTENT STRATEGIST cpg Archana Franks, RN RN sm6 Tarik Valladares, DO DO rc3 Name Value Range Interpretation Code Description Data Giselle rce(s) Supporting Document(s) ID Date Data Source [id number] 06/12/2020 04:51:00 PM EDT [facility] Name: ARIEL RUBY [facility] Rec #: [id number] 5 : 1990 Age/Sex: 29M Date of Service: 06/12/20 DISPOSITION SUMMARY Discharge Summary [facility] Name:Ariel Ruby Emergency Department Age:29 yrs Sex:Male :1990 Arrival:06/12/2020 16:51 Departure Date06/12/2020 Departure Time17:59 Private MD:None, Primary Care Provider- Outcome: Discharge Location: Home/Self Care Condition: Good Chief Complaint: Foot Pain Diagnosis: Contusion of right foot Prescriptions: Ibuprofen 800 mg Oral Tablet - take 1 tablet by ORAL route every 8 hours As needed take with food; 30 tablet Follow up: Bereket Kauffman DPM Custom Notes: Ariel appears you have a a foot contusion. It is sore but it will improve. There is no fractures or dislocations noted on your x-rays. I am sending you home with ibuprofen. Use the Alvaro wrap until your foot starts feeling better. I gave you Dr. Galvez's telephone number. She is our revenue collector and you may want to follow-up with her in about a week. If your symptoms worsen such as pain, redness, swelling, or any other symptoms, please return. Attending Physician: Tarik Valladares DO Private MD: None, Primary Care Provider- Mid Level Provider: Erick Gilmore NP Followup Physician: Bereket Kauffman DPM Orders: Foot Rt Min 3 Views Each - Xray Discharge Instruction: Discharge Summary Sheet, Contusion, [id number], Medication Reconciliation Name Value Range Interpretation Code Description Data Giselle rce(s) Supporting Document(s) ID Date Data Source [id number] 06/12/2020 04:51:00 PM EDT [facility] Name: ARIEL RUBY Med Rec #: [id number] 5 : 1990 Age/Sex: 29M Date of Service: 06/12/20 NURSE CHART Nurse's Notes [facility] Name: Ariel Ruby Age: 29 yrs Sex: Male : 1990 Arrival Date: 06/12/2020 Time: 16:51 Bed FT3 Private MD: None, Primary Care Provider- Diagnosis: Contusion of right foot Presentation: 06/12 17:06 Transition of care: pat ient was not received from another [facility] setting of care. Presenting complaint: Patient states - 3 days ago tripped injury to right foot swollen purple painful. Have you travelled in the last 30 days? No. Have you had contact with an individual with a confirmed diagnosis of Ebola or COVID-19? No. 17:06 Method Of Arrival: Walk-In [facility] 17:06 Acuity: Semi-Urgent - 4 [facility] Triage Assessment: 17:07 Suicide Screening: Have you had thoughts of harming [facility] yourself or others? No. The patient appears to have some mild discomfort, The patient is cooperative. Patient states the pain is currently a 6 / 10 The patient complains of pain in dorsum of right foot. The patient states the pain began 3days ago. The quality of the pain is described as aching, The pain is described as continuous. Historical: - Allergies: Codeine; - Home Meds: 1. None - PMHx: collapased lung; - PSHx: chest tubes x 3; lung surgery; - Med Reconciliation:: Green Alert: The patient's med list is complete to the best of the nurse's/provider's knowledge. Medications reviewed, verbally from patient/family. - Immunization history: All immunizations are up to date. - : Family history not pertinent. - Advance directive: There is no existing advanced directive. Information offered. - Family History:: mother is healthy, Father is healthy. - Social History: Smoking status (Tobacco): Patient states is a light tobacco smoker (<10 cigarettes a day). Preferred Language: [place]an. Screenin:09 AUDIT 1. How often do you have a drink containing alcohol? sm6 Never (0 points). Drug Abuse Screening Test: 1. Have you used drugs other than those required for medical reasons? No (0 points), screen is complete, no risk. Abuse screen: Denies threats or abuse. Nutritional screening: No deficits noted. Assessment: 17:45 See Triage Assessment. tlf 17:50 The patient complains of pain in dorsum of right foot. tlf Derm: Skin is intact, Skin temperature is cold. Musculoskeletal: Circulation, motion, and sensation are all intact. brisk, toes Range of motion intact in all extremities. No swelling noted. Pulses are all present. Patient reports numbness in right first toe, right second toe and right third toe. Vital Signs: 17:07 Weight 58.97 kg; Height 5 ft. 10 in. (177.80 cm); sm6 17:09 BP 135 / 80; Pulse 68; Resp 16; Temp 97.5(TE); Pulse Ox 99% sm6 on R/A; 17:07 Body Mass Index 18.65 (58.97 kg, 177.80 cm) sm6 [place] Coma Score: 17:46 Eye Response: spontaneous(4). Verbal Response: oriented(5). cpg Motor Response: obeys commands(6). Total: 15. ED Course: 16:52 Patient arrived in ED. km5 17:06 None, Primary Care Provider- is Private Physician. sm6 17:07 Triage completed. sm6 17:08 Arm band placed on right wrist. Patient has correct armband sm6 on for positive identification. 17:10 Sandie Gunn, LAURYN is Primary Nurse. sm6 17:11 Erick Gilmore NP is PHCP. cpg 17:11 Tarik Valladares DO is Attending Physician. cpg 17:44 Radiology: Patient to X-ray at 17:45. tlf 17:47 Foot Rt Min 3 Views Each - Xray Sent. tlf 17:49 Bereket Kauffman DPM is Referral Physician. cpg 17:52 No procedures ordered. No diagnostic tests ordered. Alvaro tlf wrap to: right ankle. Pulses have been checked and were present before and after application. Distal circulation normal before and after application. Administered Medications: No medications were administered Outcome: 17:49 Discharge ordered by MD. cpg 17:58 Reassessment: Visual reassessment shows no worsening tlf symptoms, vital signs not warranted. Patient states feeling better. 17:58 Patient verbalized understanding of disposition instructions. Patient has no functional deficits. 17:58 Patient discharged to home ambulatory. 17:58 Condition: stable 17:58 Discharge instructions given to patient, Patient was instructed on discharge instructions, follow up and referral plans, importance Rest, Ice, Compression, and Elevation (R.I.C.E.) in the early days following an injury. The patient demonstrated understanding of instructions, medications, Prescriptions given X 1. 17:58 Vitals are Complete in accordance with Emergency Department Policy. 17:58 Patient was instructed on benefits of quitting smoking. tlf 17:59 Patient left the ED. tlf Signatures: Erick Gilmore, REID CONTENT STRATEGIST [facility] Archana Franks, RN RN tate6 Brenda Thomas km5 Sandie Cuello RN RN tlf Name Value Range Interpretation Code Description Data Giselle rce(s) Supporting Document(s) ID Date Data Source [id number] 06/13/2020 10:11:00 AM EDT [facility] Name: ARIEL RUBY : 1990 Ag e/Sex: 29M Ordering Provider: CASEY Tyler Med Rec #: [id number] Reg Status: [facility] ER Room #: Date of Service: 06/12/20 Report Number: [id number] cc:PCP None Send Report To: [id number] XRP/XR Foot Rt Min. 3 Views Reason for exam: _INJURY Comparison: None. FINDINGS: No dislocations are seen. The joint spaces are maintained. No significant soft tissue edema is seen. No radiopaque foreign bodies. Minimal posterior and plantar calcaneal spurring changes are seen. IMPRESSION: No acute osseous abnormalities. Fluoroscopy time in seconds: 0 Number of Exposures: Time Portable Image Performed: Contrast Agent in ml: Method of Administration: REPORT SIGNATURE ON FILE Reported By: Rosette Benoit MD <Electronically signed by Rosette Benoit MD> 06/13/20 1226 Dictation Date/Time: 06/12/20 2027 Transcribed Date/Time: 06/13/20 1011 Respiratory Therapist Assistant: VISHAL Name Value Range Interpretation Code Description Data Giselle rce(s) Supporting Document(s) Procedure
--- OUTSIDE RECORDS SUMMARY | 2020-10-13 14:23 | CCD ---
Author Author [facility] Organization [facility] Address Unknown Phone Unavailable Care Team Providers Care Watch Commander Name Role Phone Carly GILMORE NP Unavailable Carly GILMORE HEADING MAKER Unavailable Carly GILMORE HEADING MAKER Unavailable GRUDOWSKI, P CHRISTOPHER HEADING MAKER Unavailable GRUDOWSKI, P CHRISTOPHER HEADING MAKER Unavailable GRUDOWSKI, P CHRISTOPHER HEADING MAKER Unavailable GRUDOWSKI, P CHRISTOPHER HEADING MAKER Unavailable GRUDOWSKI, P CHRISTOPHER HEADING MAKER Unavailable GRUDOWSKI, P CHRISTOPHER HEADING MAKER Unavailable GRUDOWSKI, P CHRISTOPHER HEADING MAKER Unavailable GRUDOWSKI, P CHRISTOPHER HEADING MAKER Unavailable GRUDOWSKI, P CHRISTOPHER HEADING MAKER Unavailable GRUDOWSKI, P CHRISTOPHER HEADING MAKER Unavailable GRUDOWSKI, P CHRISTOPHER HEADING MAKER Unavailable GRUDOWSKI, P CHRISTOPHER HEADING MAKER Unavailable GRUDOWSKI, P CHRISTOPHER HEADING MAKER Unavailable GRUDOWSKI, P CHRISTOPHER HEADING MAKER Unavailable GRUDOWSKI, P CHRISTOPHER HEADING MAKER Unavailable GRUDOWSKI, P CHRISTOPHER HEADING MAKER Unavailable GRUDOWSKI, P CHRISTOPHER HEADING MAKER Unavailable GRUDOWSKI, P CHRISTOPHER HEADING MAKER Unavailable GRUDOWSKI, P CHRISTOPHER HEADING MAKER Unavailable Tarik Valladares DO Unavailable Unavailable Tarik Valladares DO Unavailable Unavailable Tarik Valladares DO Unavailable Unavailable Tarik Valladares DO Unavailable Unavailable GALIMIDI BEREKET DPM, J Bereket DPM Unavailable GALIMIDI BEREKET DPM, J Bereket DPM Unavailable GALIMIDI BEREKET DPM, J Bereket DPM Unavailable GALIMIDI BEREKET DPM, J Bereket DPM Unavailable GALIMIDI BEREKET DPM, J Bereket DPM Unavailable [phone] GALIMIDI BEREKET DPM, J Bereket DPM Unavailable GALIMIDI BEREKET DPM, J Bereket DPM Unavailable [phone] GALIMIDI BEREKET DPM, J Bereket DPM Unavailable [phone] ADRIANA CUBA ZAIDA, Janis Cuba ZAIDA Unavailable Re-disclosure Warning The records that you [...] is protected by Article 27-F of the [facility] Public Health law. If you continue you may have access to information: Regarding HIV / AIDS; Provided by facilities licensed or operated by the [facility] Office of Mental Health; or Provided by the [facility] Office for People With Developmental Disabilities. If such information is present, then the following [facility] mandated warning applies: This information has been [...] law may result in a fine or longterm sentence or both. A general authorization for [...] Indications Data Source(s ) Outpatient Attender: Bereket WRIGHT BEREKET CERDA DPM CPSCAORT- CPSCNPOD 06/20/2020 03:16:00 PM EDT [facility] Outpatient Attender: Bereket CUBA DPM DPM CPSCAORT- CPSCNPOD 06/20/2020 08:57:00 AM EDT - 06/20/2020 08:58:00 AM EDT [facility] Patient discharged. Emergency Attender: ERICK GILMORE NPAttend er: Tarik Valladares DO CPSCAORT-ED 06/12/2020 04:51:00 PM EDT - 06/12/2020 05:58:00 PM EDT FOOT PAIN [facility] FOOT PAIN Patient discharged. Insurance Providers Payer name Policy type / Coverage type Policy ID Covered green party ID Covered green party's relationship to hodges Policy [place] Plan Information [employer] COMMUNITY PLAN MCDHMO [id number] SP [id number] MEDICAID [id number] Unemployed [id number] SELF PAY Unemployed [facility] [id number] Unemploye d [id number] [facility] PLAN [id number] Comme rcial Insurance [id number] Medicaid - [employer] Donte [id number] Medica id [id number] [employer] COMMUNITY PLAN XIX [id number] 18 [id number] MEDICAID -O/P EMERGENCY ROOM [id number] SELF PAY ONLY [id number] SP [id number] UNHC AMERICHOICE XIX -HMO [id number] 18 [id number] [facility] [id number] S [id number] [facility] PLAN Comme rcial Insurance Medicaid - [employer] Donte Medica id [facility] Health Maintenance Organization (HMO) Self MEDICAID [id number] SP [id number] SELF PAY UNAVAILABLE SP UNAVAILA BLE SELF PAY UNAVAILABLE SP UNAVAILA BLE HMO BLUE [id number] SP [id number] MEDICAID [id number] SP [id number] BLUE [employer] PLAN [id number] SP [id number] Surgeries/Procedures Procedure Description Date Indications Data Source(s) OFFICE OUTPATIENT VISIT 10 MINUTES 06/20/2020 12:00:00 AM EDT [facility] RADEX FOOT COMPLETE MINIMUM 3 VIEWS X-RAY EXAM OF FOOT 05/26 12:00:00 AM EDT [facility] EMERGENCY DEPARTMENT VISIT MODERATE SEVERITY EMERGENCY DEPT VISIT 06/12/2020 12:00:00 AM EDT [facility] Results ID Date Data Source [id number] 06/12/2020 04:51:00 PM EDT [facility] Name: ARIEL RUBY Med Rec #: [id number] 5 : 1990 Age/Sex: 29M Date of Service: 06/12/20 PHYSICIAN CHART Physician Documentation [facility] Name: Ariel Ruby Age: 29 yrs Sex: Male : 1990 Arrival Date: 06/12/2020 Time: 16:51 Bed FT3 Private MD: Palmira, Primary Care Provider- ED Physician Tarik Valladares [...] smoker (<10 cigarettes a day). Preferred Language: Samoan. ROS: 17:45 Constitutional: See HPI. MS/extremity: See [...] Index 18.65 (58.97 kg, 177.80 cm) sm6 [place] Coma Score: 17:46 Eye Response: spontaneous(4). Verbal [...] foot cpg Followup: cpg - With: Bereket Wright DPM - When: 1 week - Reason: Recheck today's complaints Discharge Instructions: - Discharge Summary Sheet cpg - Contusion, [id number] cpg Forms: - Medication Reconciliation cpg Prescriptions: - Ibuprofen 800 mg Oral Tablet - take 1 tablet by ORAL route every 8 hours As needed cpg take with food; 30 tablet; Refills: 0, Product Selection Permitted Signatures: Dispatcher [employer] EDErick Santizo, REID HEADING MAKER cpg Archana Franks RN RN sm6 Tarik Valladares, DO rc3 Name Value Range Interpretation Code Description Data Giselle rce(s) Supporting Document(s) ID Date Data Source [id number] 06/12/2020 04:51:00 PM EDT [facility] Name: ARIEL RUBY [facility] Rec #: [id number] 5 : 1990 Age/Sex: 29M Date of Service: 06/12/20 DISPOSITION SUMMARY Discharge Summary [facility] Name:Ariel Ruby Emergency Department Age:29 yrs Sex:Male :1990 Arrival:06/12/2020 16:51 Departure Date06/12/2020 Departure Time17:59 Private MD:Palmira, Primary Care Provider- Outcome: Discharge Location: Home/Self Care Condition: Good Chief Complaint: Foot Pain Diagnosis: Contusion of right foot Prescriptions: Ibuprofen 800 mg Oral Tablet - take 1 tablet by ORAL route every 8 hours As needed take with food; 30 tablet Follow up: Bereket Wright DPM Custom Notes: Ariel appears you have a a foot contusion. It is sore but it will improve. There is no fractures or dislocations noted on your x-rays. I am sending you home with ibuprofen. Use the Alvaro wrap until your foot starts feeling better. I gave you Dr. Galvez's telephone number. She is our agency trainer and you may want to follow-up with her in about a week. If your symptoms worsen such as pain, redness, swelling, or any other symptoms, please return. Attending Physician: Tarik Valladares DO Private MD: Palmira, Primary Care Provider- Mid Level Provider: Erick Gilmore NP Followup Physician: Bereket Wright DPM Orders: Foot Rt Min 3 Views Each - Xray Discharge Instruction: Discharge Summary Sheet, Contusion, [id number], Medication Reconciliation Name Value Range Interpretation Code Description Data Giselle rce(s) Supporting Document(s) ID Date Data Source [id number] 06/12/2020 04:51:00 PM EDT [facility] Name: ARIEL RUBY [facility] Rec #: [id number] 5 : 1990 Age/Sex: 29M Date of Service: 06/12/20 NURSE CHART Nurse's Notes [facility] Name: Ariel Ruby Age: 29 yrs Sex: Male : 1990 Arrival Date: 06/12/2020 Time: 16:51 Bed FT3 Private MD: None, Primary Care Provider- Diagnosis: Contusion of right foot Presentation: 06/12 17:06 Transition of care: pat ient was not received from another [facility] setting of care. Presenting complaint: Patient states - 3 days ago tripped injury to right foot swollen purple painful. Have you travelled in the last 30 days? No. Have you had contact with an individual with a confirmed diagnosis of Ebola or COVID-19? No. 17:06 Method Of Arrival: Walk-In [facility] 17:06 Acuity: Semi-Urgent - 4 [facility] Triage Assessment: 17:07 Suicide Screening: Have you had thoughts of harming [facility] yourself or others? No. The patient appears [...] smoker (<10 cigarettes a day). Preferred Language: Samoan. Screenin:09 AUDIT 1. How often do you [...] Index 18.65 (58.97 kg, 177.80 cm) sm6 [place] Coma Score: 17:46 Eye Response: spontaneous(4). Verbal Response: oriented(5). cpg Motor Response: obeys commands(6). Total: 15. ED Course: 16:52 Patient arrived in ED. km5 17:06 None, Primary Care Provider- is Private Physician. sm6 17:07 Triage completed. sm6 17:08 Arm band placed on right wrist. Patient has correct armband sm6 on for positive identification. 17:10 Sandie Gunn, RN is Primary Nurse. sm6 17:11 Erick Gilmore NP is PHCP. cpg 17:11 Tarik Valladares DO is Attending Physician. cpg 17:44 Radiology: Patient to X-ray at 17:45. tlf 17:47 Foot Rt Min 3 Views Each - Xray Sent. tlf 17:49 Bereket Wright DPM is Referral Physician. cpg 17:52 No [...] Patient left the ED. tlf Signatures: Erick Gilmore NP HEADING MAKER Archana Norton RN RN tate6 Brenda Thomas km5 Sandie Cuello RN RN tlf Name Value Range Interpretation Code Description Data Giselle rce(s) Supporting Document(s) ID Date Data Source [id number] 06/13/2020 10:11:00 AM EDT [facility] Name: ARIEL RUBY : 1990 Ag e/Sex: 29M Ordering Provider: CASEY Tyler Med Rec #: [id number] Reg Status: [facility] ER Room #: Date of Service: 06/12/20 Report Number: [id number] cc:PCP None Send Report To: [id number] XRP/XR Foot Rt Min. 3 Views Reason [...] Benoit MD> 06/13/20 1226 Dictation Date/Time: 06/12/20 1757 Transcribed Date/Time: 06/13/20 1011 Jewelry Consultant: VISHAL Name Value Range Interpretation Code Description Data Giselle rce(s) Supporting Document(s) Procedure
--- NOTE | 2020-10-13 14:50 | REP ---
INDICATION: left testicular pain. COMPARISON: None. TECHNIQUE: High-resolution bilateral scrotal sonography. FINDINGS: Testicular parenchyma is homogeneous. No intratesticular mass lesion is observed. Right testicular dimensions are 4.6 x 2.0 x 3.1 cm. Left testis measures 5.2 x 2.1 x 3.2 cm. Epididymi are unremarkable. There is a small 0.2 cm right epididymal cyst. The left epididymal tail is somewhat hyperemic and thickened question left epididymitis. No hydrocele or varicocele is seen. No hernia is noted. Doppler flow is normal in both testes. Resistive indices are 0.54 bilaterally by Doppler. IMPRESSION: No intratesticular mass lesion is seen. Testicular Doppler flow is preserved. Somewhat hyperemic slightly thickened epididymal tail on the left question epididymitis. Otherwise negative. <Electronically signed by Joshua Lyman > 10/13/20 [id number]
[2020-10-13] MEDS ORDERED: KETOROLAC 30 MG/ML 1ML VIAL IM ONE (15:30)
[2020-10-13 15:39] LABS: BASO # 0.1 10^3/uL (0.0-0.2); BASO % 0.6 % (0.0-1.0); EOS # 0.1 10^3/uL (0.0-0.5); HEMATOCRIT 41.8 % (42.0-52.0); HEMOGLOBIN 13.5 g/dl (13.5-17.5); LYMPH # 2.2 10^3/uL (1.5-5.0); LYMPH % 21.2 % (24.0-44.0); MEAN CORPUSCULAR HEMOGLOBIN 29.7 pg (27.0-33.0); MEAN CORPUSCULAR HGB CONC 32.3 g/dl (32.0-36.5); MEAN CORPUSCULAR VOLUME 91.9 fl (80.0-96.0); MONO # 0.9 10^3/uL (0.0-0.8); MONO % 8.5 % (2.0-8.0); NEUTROPHILS # 7.2 10^3/uL (1.5-8.5); NEUTROPHILS % 68.4 % (36.0-66.0); PLATELET COUNT, AUTOMATED 245 10^3/uL (150-450); RED BLOOD COUNT 4.55 10^6/uL (4.30-6.10); WHITE BLOOD COUNT 10.5 10^3/uL (4.0-10.0)
[2020-10-13 16:01] LABS: ALBUMIN 3.6 GM/DL (3.2-5.2); BILIRUBIN,DIRECT 0.1 MG/DL (0.0-0.2); BILIRUBIN,TOTAL 0.3 MG/DL (0.2-1.0); TOTAL PROTEIN 6.9 GM/DL (6.4-8.2)
[2020-10-13 16:24] LABS: CHLAMYDIA DNA AMPLIFICATION POSITIVE (NEGATIVE); GC DNA AMPLIFICATION NEGATIVE (NEGATIVE)
[2020-10-13] MEDS ORDERED: DOXYCYCLINE HYCLATE 100MG TABLET PO ONE (17:15)
[2020-10-13] MEDS ORDERED: DOXY100C37 PO (17:25)
== END 2020-10-13 18:06 | disposition home or self-care (01) ==
LOC: M ED 13:20
DX: N45.1 Epididymitis (principal); A74.9 Chlamydial infection, unspecified; Z87.891 Personal history of nicotine dependence; Z88.5 Allergy status to narcotic agent
CPT/HCPCS: 76870; 80047; 80076; 81001; 83690; 85025; 87661; 93976; 96372; 99284; J1885

== ENCOUNTER 2020-11-18 08:35 | Emergency (ER) | payer OTHER ==
[~2020-11-18] VITALS: Ht 177.8 cm; Wt 65.0 kg
[~2020-11-18 08:35] MED LIST changes: +DOXY100C37 PO
[2020-11-18 09:52] LABS: BASO # 0.1 10^3/uL (0.0-0.2); BASO % 0.6 % (0.0-1.0); EOS # 0.1 10^3/uL (0.0-0.5); EOS % 1.8 % (0.0-3.0); HEMATOCRIT 43.3 % (42.0-52.0); HEMOGLOBIN 13.9 g/dl (13.5-17.5); LYMPH % 24.7 % (24.0-44.0); MEAN CORPUSCULAR HEMOGLOBIN 29.5 pg (27.0-33.0); MEAN CORPUSCULAR HGB CONC 32.1 g/dl (32.0-36.5); MEAN CORPUSCULAR VOLUME 91.9 fl (80.0-96.0); MONO # 1.1 10^3/uL (0.0-0.8); MONO % 13.3 % (2.0-8.0); NEUTROPHILS # 4.7 10^3/uL (1.5-8.5); NEUTROPHILS % 59.3 % (36.0-66.0); PLATELET COUNT, AUTOMATED 222 10^3/uL (150-450); RED BLOOD COUNT 4.71 10^6/uL (4.30-6.10)
--- NOTE | 2020-11-18 10:12 | REP ---
INDICATION: R hand pain. COMPARISON: Comparison right hand radiographs are from May 05, 2011.. TECHNIQUE: Four views. FINDINGS: Four views of the right hand demonstrate normal bones, joints, and soft tissues. No fracture or subluxation is seen. No opaque foreign body noted. IMPRESSION: Negative right hand series. <Electronically signed by Joshua Lyman > 11/18/20 [id number]
--- NOTE | 2020-11-18 10:14 | REP ---
INDICATION: R lateral epicondyle TTP. COMPARISON: None. TECHNIQUE: Four views of the right elbow are provided. FINDINGS: Four views of the right elbow demonstrate a small olecranon spur. Bones, joints, and soft tissues are otherwise unremarkable.. No fracture or subluxation is seen. No opaque foreign body noted. IMPRESSION: Small olecranon spur. No fracture or subluxation seen. Otherwise negative right elbow radiographs.. <Electronically signed by Joshua Lyman > 11/18/20 1015
--- NOTE | 2020-11-18 11:29 | REP ---
INDICATION: r/o dvt RUE. COMPARISON: None. TECHNIQUE: Right upper extremity duplex venous ultrasound. FINDINGS: The internal jugular, axillary, brachial, basilic, and cephalic veins are anechoic and compressible in the right upper extremity. Color flow imaging is homogeneous. Spectral Doppler interrogation is unremarkable. There is no evidence of right upper extremity venous thrombosis. IMPRESSION: Negative right upper extremity duplex venous ultrasound. No evidence of venous thrombosis. <Electronically signed by Joshua Lyman > 11/18/20 1125
[2020-11-18 11:53] VITALS: BP 150/98
[2020-11-18] MEDS ORDERED: NEOSPORIN OINT 0.9 GM PKT TOP ONE (12:10)
[2020-11-18] MEDS ORDERED: ACETAMINOPHEN 500 MG TAB PO ONE (12:10)
[2020-11-18] MEDS ORDERED: BACI500O21 TOP (12:11)
== END 2020-11-18 12:28 | disposition home or self-care (01) ==
LOC: M ED 08:35
DX: S59.811A Other specified injuries right forearm, initial encounter (principal); T22.011A Burn of unspecified degree of right forearm, initial encounter; T23.171A Burn of first degree of right wrist, initial encounter; X19.XXXA Contact with other heat and hot substances, initial encounter; Y92.89 Other specified places as the place of occurrence of the external cause; Y93.89 Activity, other specified; Y99.0 Civilian activity done for income or pay; M25.521 Pain in right elbow; M77.11 Lateral epicondylitis, right elbow; K21.9 Gastro-esophageal reflux disease without esophagitis; F41.9 Anxiety disorder, unspecified; Z87.891 Personal history of nicotine dependence; Z88.5 Allergy status to narcotic agent

== ENCOUNTER 2022-03-10 16:28 | Emergency (ER) | payer OTHER ==
[~2022-03-10] VITALS: Ht 177.8 cm; Wt 59.9 kg
[~2022-03-10 16:28] MED LIST changes: +BACI500O21 TOP; +DOXY-443 PO; -DOXY100C37 PO
[2022-03-10] MEDS ORDERED: diphenhydrAMINE 25MG CAP PO ONE (17:40)
[2022-03-10] MEDS ORDERED: predniSONE 20 MG TAB PO ONE (17:40)
[2022-03-10] MEDS ORDERED: FAMOTIDINE 20 MG TAB PO ONE (17:40)
[2022-03-10 17:57] LABS: BASO # 0.1 10^3/uL (0.0-0.2); BASO % 0.7 % (0.0-1.0); EOS # 0.2 10^3/uL (0.0-0.5); EOS % 1.4 % (0.0-3.0); HEMOGLOBIN 12.8 g/dl (13.5-17.5); LYMPH # 2.5 10^3/uL (1.5-5.0); LYMPH % 20.6 % (24.0-44.0); MEAN CORPUSCULAR HEMOGLOBIN 30.8 pg (27.0-33.0); MEAN CORPUSCULAR HGB CONC 33.7 g/dl (32.0-36.5); MEAN CORPUSCULAR VOLUME 91.6 fl (80.0-96.0); MONO # 1.1 10^3/uL (0.0-0.8); MONO % 9.2 % (2.0-8.0); NEUTROPHILS # 8.2 10^3/uL (1.5-8.5); NEUTROPHILS % 67.7 % (36.0-66.0); PLATELET COUNT, AUTOMATED 293 10^3/uL (150-450); RED BLOOD COUNT 4.15 10^6/uL (4.30-6.10); WHITE BLOOD COUNT 12.2 10^3/uL (4.0-10.0)
[2022-03-10 18:16] LABS: ERYTHROCYTE SEDIMENTATION RATE 44 mm/hr (0-15)
[2022-03-10 18:23] LABS: ALBUMIN 3.1 GM/DL (3.2-5.2); ALT/SGPT 20 U/L (12-78); BILIRUBIN,TOTAL 0.2 MG/DL (0.2-1.0); BLOOD UREA NITROGEN 15 MG/DL (7-18); C REACTIVE PROTEIN QUANTITATIV 1.91 MG/DL (0.00-0.30); CALCIUM LEVEL 8.5 MG/DL (8.5-10.1); CARBON DIOXIDE LEVEL 27 MEQ/L (21-32); CHLORIDE LEVEL 109 MEQ/L (98-107); CREATININE FOR GFR 0.78 MG/DL (0.70-1.30); GLOMERULAR FILTRATION RATE > 60.0 (>60); GLUCOSE, FASTING 76 MG/DL (70-100); POTASSIUM SERUM 3.7 MEQ/L (3.5-5.1); SODIUM LEVEL 142 MEQ/L (136-145); TOTAL PROTEIN 6.8 GM/DL (6.4-8.2)
[2022-03-10] MEDS ORDERED: PRED20TA PO (19:01)
[2022-03-10 19:16] VITALS: BP 127/72
== END 2022-03-10 19:17 | disposition home or self-care (01) ==
LOC: M ED 16:28
DX: T78.40XA Allergy, unspecified, initial encounter (principal); Z88.5 Allergy status to narcotic agent
CPT/HCPCS: 80053; 85025; 85652; 86140; 86618; 99283; J7512

== ENCOUNTER → 2023-02-18 | Outpatient (REF) ==
[~2023-02-18] MED LIST changes: +PRED20TA PO
[2023-02-19 17:07] LABS: RUBEOLA IgG ANTIBODY 79.6 AU/mL (Immune >16.4)
== END ==
LOC: M LAB 12:15
PROVIDERS: ATTEND Nurse Practitioner Adult Health
DX: Z02.9 Encounter for administrative examinations, unspecified (principal)

== ENCOUNTER 2023-04-28 09:42 | Emergency (ER) | payer OTHER ==
[~2023-04-28] VITALS: Ht 175.3 cm; Wt 58.6 kg
[2023-04-28] MEDS ORDERED: ONDANSETRON 4MG ORAL DISINTEGRATING TAB PO ONE (12:45)
[2023-04-28] MEDS ORDERED: KETOROLAC 30 MG/ML 1ML VIAL IM ONE (12:45)
[2023-04-28 14:07] VITALS: BP 146/81; TEMP 99; O2SAT 98
[2023-04-28] MEDS ORDERED: DERMABOND TOPICAL SKIN ADHESIVE TOP ONE (14:20)
== END 2023-04-28 15:20 | disposition home or self-care (01) ==
LOC: M ED 09:42
DX: S00.81XA Abrasion of other part of head, initial encounter (principal); Y04.0XXA Assault by unarmed brawl or fight, initial encounter; F41.9 Anxiety disorder, unspecified; F17.200 Nicotine dependence, unspecified, uncomplicated; F12.10 Cannabis abuse, uncomplicated; F10.10 Alcohol abuse, uncomplicated
CPT/HCPCS: 12011; 70450; 70486; 71111; 72125; 73030; 99283; J1885